=== PATIENT | male | born 1945 | race Caucasian/White ===

== ENCOUNTER → 2016-11-06 | Outpatient (CLI) | payer OTHER ==
[~2016-11-06] MED LIST: LEVO25TA PO; LISI-725 PO; METO1TAB69 PO; OXYC1TAB3 PO; PRAV10TA39 PO
== END | disposition home or self-care (01) ==
LOC: C.LAB 09:23
PROVIDERS: ATTEND Urology
DX: N40.1 Benign prostatic hyperplasia with lower urinary tract symptoms (principal)

== ENCOUNTER → 2016-11-12 | Outpatient (CLI) | payer OTHER ==
[~2016-11-12] MED LIST changes: +METO100T44 PO; -METO1TAB69 PO
--- NOTE | 2016-11-12 15:39 | DIAGNOSTIC IMAGING REPORT ---
KUB CLINICAL HISTORY: Nephrolithiasis. Benign prosthetic hypertrophy with urinary obstruction. COMPARISON STUDY: KUB June 30, 2016. FINDINGS: There is a suspected 6 mm right renal calculus. This is unchanged. Pelvic calcifications likely reflect phleboliths. No ureteral calculi are identified. Bowel gas pattern is normal. IMPRESSION: 1. No change in the 6 mm right renal calculus. 2. No ureteral calculi identified. Electronically signed by: Yan Shafer M.D. 11/12/2016 3:38 PM Dictated Date/Time: 11/12/2016 3:36 PM
== END | disposition home or self-care (01) ==
LOC: C.RAD 14:11
PROVIDERS: ATTEND Urology
DX: N40.1 Benign prostatic hyperplasia with lower urinary tract symptoms (principal); N20.0 Calculus of kidney

== ENCOUNTER → 2016-11-12 | Outpatient (CLI) | payer OTHER | END | disposition home or self-care (01) | LOC: C.LABSPEC 11:16 | PROVIDERS: ATTEND Urology | DX: N20.0 Calculus of kidney (principal) ==

== ENCOUNTER 2016-12-08 15:19 | Emergency (ER) | payer OTHER ==
[~2016-12-08] VITALS: Ht 175.3 cm; Wt 81.1 kg
[~2016-12-08 15:19] MED LIST changes: -LEVO25TA PO; -PRAV10TA39 PO
[2016-12-08 15:27] VITALS: TEMP 36.7; Ht 175.3 cm; Wt 81.1 kg
--- NOTE | 2016-12-08 15:54 | EMERGENCY ROOM VISIT NOTE ---
ED Visit Note First contact with patient: 15:31 CHIEF COMPLAINT: Tick bite HISTORY OF PRESENT ILLNESS: This 71-year-old male patient presents to the emergency department ambulatory after they noticed a tick embedded in the scrotum yesterday. The patient did try to remove it. He states that he broke and they could not remove it all. It had been on for at least one day. The patient was in the [place] recently. The patient's tetanus shot is up-to-date. The patient denies any rashes, fevers, chills, or lightheadedness. The patient denies joint tenderness. REVIEW OF SYSTEMS: A 6 system review of systems was completed with positives and pertinent negatives listed in the HPI. ALLERGIES: Penicillin MEDICATIONS: See nursing notes PMH: Hypertension, hypothyroidism SOCIAL HISTORY: The patient lives locally with his spouse PHYSICAL EXAM: Vital Signs: Reviewed Nurse's notes, vital signs stable. GENERAL : This is a 71-year-old male, in no acute distress, well-developed, well- nourished. SKIN: There is a tick embedded in the patient's scrotum. There is a small zone of inflammation and ecchymosis around the spot where the tick is. The skin is otherwise clear. NEUROLOGICAL: Alert and oriented to person place and time, cooperative. Sensory and motor functions grossly intact. ED COURSE: I examined the patient. The tick was removed using forceps and an 18-gauge needle. There was minimal bleeding. The patient tolerated the procedure well. The area was dressed with bacitracin and a bandage. The patient was given doxycycline 200 mg p.o. for prophylaxis. The patient was discharged home in good condition. The patient was also seen and examined by who agrees with the assessment and treatment plan. DIAGNOSIS: Tick bite and removal DISCHARGE INSTRUCTIONS & TREATMENT: Watch the area for signs of infection. Keep bacitracin on it for 2 days. Follow up with family doctor if he develops symptoms of a target rash, fever, chills, lightheadedness, or joint pain. Problem List Medical Problems: (1) Corneal abrasion, right Status: Resolved (2) Kidney stones Status: Resolved Current/Historical Medications Scheduled Levothyroxine Sodium (Synthroid), 25 MCG PO DAILY Lisinopril (Zestril), 20 MG PO DAILY Metoprolol Succ (Toprol Xl) (Toprol-Xl ), 50 MG PO BID Pravastatin Sodium (Pravastatin Sodium), 1 TAB PO HS Allergies Coded Allergies: Penicillins (Unverified Allergy, Unknown, UKN, 06/30/16) Vital Signs Date Time Temp Pulse Resp B/P Pulse Ox O2 Delivery O2 Flow Rate FiO2 12/08/16 16:17 90 123/97 98 12/08/16 15:27 36.7 72 16 153/87 97 Room Air Medications Administered Medications (Trade) Dose Ordered Sig/Franca Route Start Time Stop Time Status Last Admin Dose Admin Doxycycline Hyclate (Vibramycin Cap) 200 mg ONE ONCE PO 12/08/16 16:00 12/08/16 16:01 DC 12/08/16 16:12 200 MG Departure Information Impression Primary Impression: Tick bite Dispostion Home / Self-Care Condition GOOD Referrals Stanislav Solitario M.D. (PCP) Patient Instructions ED Bite Tick Abx Tx, My [employer] Additional Instructions Watch the area for signs of infection. Keep bacitracin on it for 2 days. Follow up with family doctor if he develops symptoms of a target rash, fever, chills, lightheadedness, or joint pain. Problem Qualifiers Primary Impression: Tick bite Encounter type: initial encounter Qualified Codes: W57.XXXA - Bitten or stung by nonvenomous insect and other nonvenomous arthropods, initial encounter
[2016-12-08] MEDS ORDERED: DOXYCYCLINE HYCLATE 100 MG CAP PO ONE (16:00)
[2016-12-08] MEDS ORDERED: LEVO25TA PO (16:02)
[2016-12-08] MEDS ORDERED: PRAV10TA39 PO (16:02)
[2016-12-08 16:17] VITALS: BP 123/97; PULSE 90; O2SAT 98
== END 2016-12-08 16:18 | disposition home or self-care (01) ==
LOC: C.EDB 15:20 → C.EDD 16:18
DX: S30.863A Insect bite (nonvenomous) of scrotum and testes, initial encounter (principal); W57.XXXA Bitten or stung by nonvenomous insect and other nonvenomous arthropods, initial encounter; E05.90 Thyrotoxicosis, unspecified without thyrotoxic crisis or storm; E03.9 Hypothyroidism, unspecified; Z79.899 Other long term (current) drug therapy; Z88.0 Allergy status to penicillin; Z87.442 Personal history of urinary calculi

== ENCOUNTER 2018-09-07 22:46 | Observation (INO) ==
[2018-09-07] MEDS ORDERED: diazePAM INJ 5 MG/ML 2 ML CARP IV STA (23:14)
[2018-09-07 23:22] LABS: Basophils # (auto) 0.04 K/uL (0-0.2); Basophils % (auto) 0.4 %; Eosinophils # (auto) 0.12 K/uL (0-0.5); Eosinophils % (auto) 1.1 %; Hematocrit (blood only) 46.6 % (42-52); Hemoglobin 16.4 g/dL (14.0-18.0); Immature Granulocytes # (auto) 0.03 K/uL (0.00-0.02); Immature Granulocytes % (auto) 0.3 %; Lymphocytes # (auto) 4.34 K/uL (1.2-3.4); Lymphocytes % (auto) 40.4 %; Mean Corpuscular Hgb Conc 35.2 g/dL (32-36); Mean Corpuscular Volume 90.1 fL (80-100); Mean Platelet Volume 9.6 fL (7.4-10.4); Monocytes # (auto) 0.93 K/uL (0.11-0.59); Monocytes % (auto) 8.7 %; Neutrophils # (auto) 5.27 K/uL (1.4-6.5); Neutrophils % (auto) 49.1 %; Platelet Count 210 K/uL (130-400); RDW Coefficient of Variation 12.5 % (11.5-14.5); RDW Standard Deviation 41.3 fL (36.4-46.3); Red Blood Count 5.17 M/uL (4.7-6.1); White Blood Count 10.73 K/uL (4.8-10.8)
[2018-09-07] MEDS ORDERED: DIAZEPAM 5 MG/ML INJ 10ML VIAL ONE (23:23)
[2018-09-07 23:32] LABS: iSTAT Hemoglobin 15.6 g/dl (14.0-18.0); iSTAT Ionized Calcium 1.14 mmol/l (1.12-1.32)
[2018-09-07 23:39] LABS: BUN Creatinine Ratio 16.4 (10-20); Blood Urea Nitrogen 23 mg/dl (7-18); Carbon Dioxide 26 mmol/L (21-32); Chloride 106 mmol/L (98-107); Creatinine Clr Calc Pharmacy 46.5 ml/min; Est GFR (African American) 57.7; Est GFR (Non-African American) 49.8; Glucose 145 mg/dl (70-99); Magnesium 2.3 mg/dl (1.8-2.4); Potassium 3.3 mmol/L (3.5-5.1); Sodium 142 mmol/L (136-145)
[2018-09-07 23:43] LABS: Troponin I < 0.015 ng/ml (0-0.045)
[2018-09-07] MEDS ORDERED: OPTIRAY 320 125ml IV PRN (23:51)
--- NOTE | 2018-09-08 03:46 | History & Physical Report ---
Date of Service September 08, 2018 Assessment & Plan (1) Vertigo: 73 y/o M hx HTN, HLD, hypothyroidism. The pt presented primarily with severe vertigo, nausea and vomiting. He states that he felt like he could not hear out of his L ear for few days. He then picked up his phone today and when he abram to a full standing position with his head up, he became exceedingly dizzy. This persisted and was accompanied by profuse diaphoresis. He had to keep his eyes shut on route to the hospital and then vomited a few times on arrival. It was reported that he had clearly visible R gaze nystagmus on initial evaluation. He appeared to respond well to benzodiazepines and his symptoms had all but resolved at the time of medical evaluation. He describes sinus congestion leading up to his symptoms and denies a headache, fevers or unilateral weakness. The pt also describes some numbness in his R hand, however , this appears to be positional and is more consistent with carpal tunnel syndrome than a central issue. 1) Acute vertigo, nausea, vomiting, diaphoresis. Symptoms initially described as severe, although they resolved with Lorazipam. He is admitted with a TIA protocol and scheduled for an AM MRI. He will continue his his statin and we will provide ASA as well. Considering his history of congestion and L ear hearing loss, this is likely more related to positional vertigo, although the diaphoresis is not as easy to explain. we will obtain an additional trop AM. Regarding his R hand numbness, it is described as distal numbness which resolves with positional change. I believe this is carpal tunnel syndrome and can be addressed in the outpt setting. 2) HTN- he may be taking Metoprolol more for an elevated HR and prior tachyarrhythmias rather than HTN. We will continue this as prescribed therefore. 3) HLD - cont Simvastatin. 4) Hypothyroidism - cont Synthroid Full code - Heparin prophylaxis Total time for this admit including review of labs, meds, imaging, records - discussion with pt, family and ER attending - 40 min History of Present Illness Primary Care Provider: Stanislav Solitario 73 y/o M hx HTN, HLD, hypothyroidism. The pt presented primarily with severe vertigo, nausea and vomiting. He states that he felt like he could not hear out of his L ear for few days. He then picked up his phone today and when he abram to a full standing position with his head up, he became exceedingly dizzy. This persisted and was accompanied by profuse diaphoresis. He had to keep his eyes shut on route to the hospital and then vomited a few times on arrival. It was reported that he had clearly visible R gaze nystagmus on initial evaluation. He appeared to respond well to benzodiazepines and his symptoms had all but resolved at the time of medical evaluation. He describes sinus congestion leading up to his symptoms and denies a headache, fevers or unilateral weakness. The pt also describes some numbness in his R hand, however , this appears to be positional and is more consistent with carpal tunnel syndrome than a central issue. PMH: 1) HTN 2) HLD 3) Hypothyroidism 4) Histroy of GI bleeding - no definitive source Surgical: 1) Tayo fundoplication 2) Umbilical hernia repair Family: No history of CVA - father had a brain tumor Social: Does not smoke or drink. 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 Allergies Allergy/AdvReac Type Severity Reaction Status Date / Time strawberry Allergy Intermediate Hives Verified 09/07/18 23:55 tomato Allergy Intermediate Hives Verified 09/07/18 23:55 Penicillins Allergy Unknown UKN Unverified 09/07/18 23:53 Home Medications Home Medications Medication Instructions Recorded Confirmed Type levothyroxine 25 mcg PO DAILY 09/07/18 09/07/18 History metoprolol succinate 50 mg PO DAILY 09/07/18 09/07/18 History pravastatin 20 mg PO DAILY 09/07/18 09/07/18 History Past Med/Surg History Social History Feels Safe at Home: Yes Smoking Status: Never smoker Review of Systems Gen: Describes profuse diaphoresis ENT: Nasal congestion and transient L sided hearing loss Eyes: Describes inability to focus/vertigo CV: Denies CP, palpitations Pulmonary: Denies SOB, cough, wheezing GI: Denies diarrhea, constipation - N/V on arrival to hospital as above Neuro: Denies acute or unilateral weakness, acute gait impairment - vertigo as above Musculoskeletal: Denies joint pain, inflammation Endocrine: Denies polydipsia, polyuria Skin: Denies acute rashes or ulcers Physical Exam 2 Vital Signs (Past 24 Hours): Last Vital Signs Temp 36.4 C L 09/07/18 22:49 Pulse 90 09/08/18 02:32 Resp 14 09/08/18 02:32 BP 129/90 09/08/18 02:32 Pulse Ox 93 09/08/18 02:32 Physical Exam: General: AAO x 3, no distress ENT: No erythema or exudates, no thrush - L ear exhibits mild wax build up Eyes: [place], EOMI Head and neck: Normocephalic, atraumatic, No JVD, neck is supple. Chest/heart: Nontender, S1,2, RRR, no murmurs, no gallops Lungs: CTAB, no wheezing or crackles Abdomen: Nontender, nondistended, BS+ Neuro: AAO x 3, speech is clear, no unilateral weakness or loss of sensation, coordination intact Musculoskeletal: No joint inflammation, muscle tenderness, FROM Skin: No acute rashes or ulcers Extremities: No clubbing, cyanosis, edema Results & Data Diagnostic Findings CTA head: BL basal ganglia calcifications consistent with thyroid disease. No evidence of acute infarct.
[2018-09-08] MEDS ORDERED: LORazepam 0.25 MG/0.5 ML VIAL IV PRN (04:15)
[2018-09-08] MEDS ORDERED: MAGNESIUM HYDROXIDE SUSP 30 ML UDC PO PRN (04:15)
[2018-09-08] MEDS ORDERED: ALUMINUM/MAGNESIUM SUSP 30 ML UDC PO PRN (04:15)
[2018-09-08] MEDS ORDERED: ONDANSETRON INJ 2 MG/ML 2 ML VIAL IV PRN (04:15)
[2018-09-08] MEDS ORDERED: PHARMACIST DISCHARGE MED REC CONSULT PRN (04:15)
[2018-09-08] MEDS ORDERED: ACETAMINOPHEN 325 MG TAB PO PRN (04:15)
[2018-09-08] MEDS ORDERED: POLYETHYLENE (MIRALAX) 17 GM PACK PO PRN (04:15)
[2018-09-08] MEDS ORDERED: LORazepam 0.5 MG/1 ML VIAL IV PRN (04:44)
[2018-09-08] MEDS: D5NSS + 20MEQ KCL 20 MEQ/1,000 ML BAG IV SCH ×2 (05:02→14:02)
--- NOTE | 2018-09-08 05:56 | Emergency Department Note ---
Entered by Kalen Mercado acting as a scribe for Lawson Munroe MD ED Provider Note Name: Kalen Sales Age: 73 Arrives Via: Private vehicle Informant: Patient CC: Dizziness HPI: The patient is a 73 year old male who presents to the ED with his via private vehicle due to complaints of constant dizziness that began an hour ago. Patient describes the dizziness as like the world is spinning. He states he is also warm and diaphoretic. Patient states he also began vomiting after arriving at the ER. He adds that a couple of days ago he was experiencing numbness in his right hand and over the past week, including today, he has had left ear pain and difficulty hearing out of his left ear. Patient�s past medical history includes kidney stones, HTN, and HLD. states she was sick last week with the stomach bug. Patient denies any recent weakness/numbness in his legs or left arm. He also denies chest pain, abdominal pain, SOB, recent falls, exposure to weird chemicals, or history of vertigo/heart attacks/strokes/ diabetes. ROS: See above HPI for pertinent positives & negatives. A total of 10 systems reviewed and were otherwise negative. Past Medical History: Kidney stones, HTN, and HLD Past Surgical History: None Family History: None Social History: Lives with family Home Medications: HTN/HLD medication Allergies None Physical: Vitals: BP = 152/95 P = 82 Resp = 12 Temp = 97.5 O2 Sat = 97 Delivery = Room Air Exam: GENERAL: Patient is uncomfortable appearing and in moderate distress. EYES: Rotary nystagmus with slow beats to left otherwise no scleral icterus. ENT: Mild effusion of Left TM, non-bulging, nonexudative. Normal right TM. Mucous membranes moist, no nasal congestion. NECK: No masses appreciated, no meningismus, trachea is midline. RESPIRATORY: No dyspnea. Clear to auscultation and equal bilaterally. No wheeze , no rhonchi. CARDIOVASCULAR: Regular rate and rhythm. No murmurs, rubs, gallops appreciated. GASTROINTESTINAL: Abdomen soft, non-tender, no peritonitis. Bowel sounds positive. No masses appreciated. BACK: No midline tenderness, no CVA tenderness EXTREMITIES: Normal motion all extremities, no cyanosis, no edema. NEUROLOGIC: Alert and oriented, no acute motor or sensory deficits, no focal weakness, cranial nerves grossly intact. SKIN: Diaphorectic otherwise no rash, no jaundice. ED Course: Prior Medical Record, Triage/Nursing Notes, Medications, Allergies reviewed by Me Vital Signs: reviewed and remarkable for mild HTN Labs: Reviewed and remarkable for normal trop, cbc, bmp Interventions: Valium 5mg IV, NSS bolus 1L IV Imaging: X ray results are stated below per my interpretation: Chest: 1 view: No infiltrate, no effusion, normal cardiac border. [facility] Radiologist interpretation reviewed by me: "CT HEAD: Dystrophic calcifications are noted in the bilateral cerebellar vermis and also in the bilateral basal ganglia. Recommend clinical correlation with underlying metabolic disorders such as hypothyroidism. No acute intracranial hemorrhage, midline shift, mass effect, hydrocephalus or infarct. Bony structures are intact. CTA HEAD: No stenosis/occlusion or aneurysm of the intracranial vessels. Radiologist: Hugo Whitten MD" "CTA NECK: Mild atherosclerosis of the right distal common carotid artery and carotid bifurcation. No evidence of significant stenosis/occlusion or dissection of the carotid arteries or vertebral arteries. Radiologist: Hugo Whitten MD" EKG: Per My Interpretation: NSR 84 bpm with PAC no ischemia. No stemi. QTC 493. Consults: 0020: I reviewed the patient's case with Dr. Lovell of the [facility] [place]. He will evaluate the patient for further management. Times: 230: Past medical records reviewed. The patient was evaluated in room B6 , and a complete history and physical examination were performed. 0013: I reevaluated the patient who is sleeping. Patient states her nausea has improved. Patient is mildly hypoxic on room air and still has mild nystagmus but it is much improved. 0030: Upon reevaluation, the patient will be further evaluated. I updated the patient on her findings and treatment plan. Patient is agreeable to the treatment plan. Patient will be assessed for further evaluation. Blood pressure: Normal. No Referral necessary Disposition: Hospitalist Evaluation Prescriptions: None. Differentials: Headache, Migraine, Cluster Headache, Seizure, Meningitis, Sinusitis, CO exposure, ICH/SAH, Infectious, Tumor, Sinus Thrombosis, Arterial Dissection, amongst other pathologies entertained. Medical Decision Makin yr old male with HTN, DLP, hypothyroid history arrives with severe nausea, vomiting, and vertigo. Onset about an hour ago but has been having ongoing right arm issues for last few days. Rotary nystagmus with left lateral beats on eye exam though no other neuro deficits. Not TPA candidate but felt emergent CTA indicated. No bleed nor occlusion though there are large calcifications bilateral cerebellum of uncertain effect. EKG/Trop OK and without chest pain nor SOB seems unlikely ACS nor PE. He has bening abdominal exam. Mild hypoxia after IV Valium which did help symptoms though still vertiginous. With continued symptoms and already a bit hypoxic I feel discharge would not be reasonable, plus fact he will need further work-up and evaluation. Patient otherwise stable and is looking much better at time of hospitalization. Impression: Right arm weakness Vertigo Lawson Munroe MD The scribe's documentation has been prepared under my direction and personally reviewed by me in its entirety. I confirm that the note above accurately reflects all work, treatment, procedures, and medical decision making performed by me. Impression & Plan Right arm weakness, Vertigo Past Med/Surg History Medical History Hypertension Hypothyroidism Surgical History History of Juan fundoplication History of appendectomy Social History Current Living Situation: Spouse Other Information That Helps Us Care for You: No Feels Safe at Home: Yes Safety Concerns: Feels Safe At This Time Smoking Status: Never smoker Tobacco Type: smokeless tobacco Do You Dip or Chew Tobacco: Yes Second Hand Exposure: No Tobacco Cessation Education Requested by Patient: No Hx Alcohol Use: Yes Alcohol Intake Frequency: holidays/special occasions only Hx Substance Use: No Beliefs That Will Affect Care: None Preferred Language: Norwegian Communication Ability: Effective Packing Clerk Required: No Results & Data Vital Signs Vital Signs - 24 hr 09/07/18 22:49 09/07/18 23:09 09/07/18 23:49 Temperature 36.4 C L Temperature Source Oral Sepsis Recent Fever Within 48 Hours No Sepsis New/Unexplained Change in Mental Status No Sepsis Action Taken by Nursing No Action Required Pulse Rate 88 82 Pulse Rate [Apical] 88 Pulse Rhythm [Apical] Pulse Strength [Apical] Respiratory Rate 18 12 12 Respiratory Effort / Characteristics Non-Labored Spontaneous Respiratory Depth Normal Respiratory Pattern Blood Pressure 152/95 H Blood Pressure [Left Arm] 120/84 Blood Pressure [Right Arm] Blood Pressure Mean 114 Blood Pressure Mean [Left Arm] 96 Blood Pressure Mean [Right Arm] Blood Pressure Position [Left Arm] Lying Blood Pressure Position [Right Arm] Pulse Oximetry 97 97 93 Oxygen Delivery Method Room Air Room Air Room Air Oxygen Flow Rate 09/07/18 23:57 09/08/18 00:35 09/08/18 01:00 Temperature Temperature Source Sepsis Recent Fever Within 48 Hours Sepsis New/Unexplained Change in Mental Status Sepsis Action Taken by Nursing Pulse Rate Pulse Rate [Apical] 83 85 Pulse Rhythm [Apical] Pulse Strength [Apical] Respiratory Rate 13 14 Respiratory Effort / Characteristics Respiratory Depth Respiratory Pattern Blood Pressure Blood Pressure [Left Arm] 120/77 121/81 Blood Pressure [Right Arm] Blood Pressure Mean Blood Pressure Mean [Left Arm] 91 94 Blood Pressure Mean [Right Arm] Blood Pressure Position [Left Arm] Lying Lying Blood Pressure Position [Right Arm] Pulse Oximetry 87 L 95 100 Oxygen Delivery Method Room Air Room Air Nasal Cannula Oxygen Flow Rate 2 09/08/18 02:00 09/08/18 02:32 09/08/18 03:51 Temperature Temperature Source Sepsis Recent Fever Within 48 Hours Sepsis New/Unexplained Change in Mental Status Sepsis Action Taken by Nursing Pulse Rate 103 H Pulse Rate [Apical] 83 90 Pulse Rhythm [Apical] Pulse Strength [Apical] Respiratory Rate 14 14 16 Respiratory Effort / Characteristics Non-Labored Spontaneous Respiratory Depth Normal Respiratory Pattern Blood Pressure 113/95 Blood Pressure [Left Arm] 132/75 129/90 Blood Pressure [Right Arm] Blood Pressure Mean Blood Pressure Mean [Left Arm] 94 103 Blood Pressure Mean [Right Arm] Blood Pressure Position [Left Arm] Lying Lying Blood Pressure Position [Right Arm] Pulse Oximetry 100 93 94 Oxygen Delivery Method Room Air Room Air Room Air Oxygen Flow Rate 09/08/18 04:10 09/08/18 04:15 Temperature 36.6 C Temperature Source Oral Sepsis Recent Fever Within 48 Hours Sepsis New/Unexplained Change in Mental Status Sepsis Action Taken by Nursing Pulse Rate 106 H Pulse Rate [Apical] 101 H Pulse Rhythm [Apical] Regular Pulse Strength [Apical] Normal Respiratory Rate 18 Respiratory Effort / Characteristics Non-Labored Spontaneous Respiratory Depth Normal Respiratory Pattern Regular Blood Pressure Blood Pressure [Left Arm] Blood Pressure [Right Arm] 137/84 Blood Pressure Mean Blood Pressure Mean [Left Arm] Blood Pressure Mean [Right Arm] 101 Blood Pressure Position [Left Arm] Blood Pressure Position [Right Arm] Sitting Pulse Oximetry 97 Oxygen Delivery Method Room Air Oxygen Flow Rate Laboratory Data Result diagrams: 09/07/18 23:02 09/07/18 23:02 Lab Results 09/07/18 09/07/18 09/07/18 Range/Units 23:02 23:02 23:02 WBC 10.73 (4.8-10.8) K/uL RBC 5.17 (4.7-6.1) M/uL Hgb 16.4 (14.0-18.0) g/dL POC Hgb (14.0-18.0) g/dl Hct 46.6 (42-52) % POC Hct (42-52) % MCV 90.1 (80-100) fL MCH 31.7 (25-34) pg MCHC 35.2 (32-36) g/dL RDW Std Deviation 41.3 (36.4-46.3) fL RDW Coeff of Aaron 12.5 (11.5-14.5) % Plt Count 210 (130-400) K/uL MPV 9.6 (7.4-10.4) fL Immature Gran % (Auto) 0.3 % Neut % (Auto) 49.1 % Lymph % (Auto) 40.4 % [place] % (Auto) 8.7 % Eos % (Auto) 1.1 % Baso % (Auto) 0.4 % Immature Gran # (Auto) 0.03 H (0.00-0.02) K/uL Neut # (Auto) 5.27 (1.4-6.5) K/uL Lymph # (Auto) 4.34 H (1.2-3.4) K/uL [place] # (Auto) 0.93 H (0.11-0.59) K/uL Eos # (Auto) 0.12 (0-0.5) K/uL Baso # (Auto) 0.04 (0-0.2) K/uL PT 10.0 (9.0-12.0) Seconds INR 1.0 (0.9-1.1) POC Sodium (135-144) mEq/L Sodium 142 (136-145) mmol/L POC Potassium (3.3-5.0) mEq/L Potassium 3.3 L (3.5-5.1) mmol/L POC Chloride (101-112) mEq/L Chloride 106 (98-107) mmol/L Carbon Dioxide 26 (21-32) mmol/L POC Total CO2 (24-31) mEq/l Anion Gap 10.0 (3-11) POC Anion Gap (16-25) mmol/L POC BUN (7-18) mg/dl BUN 23 H (7-18) mg/dl Creatinine 1.41 H (0.6-1.4) mg/dl POC Creatinine (0.6-1.3) mg/dl Est Cr Clr Drug Dosing 46.5 ml/min Est GFR ( Amer) 57.7 Est GFR (Non-Af Amer) 49.8 BUN/Creatinine Ratio 16.4 (10-20) Glucose 145 H (70-99) mg/dl POC Glucose (other) (70-99) mg/dl Calcium 9.0 (8.5-10.1) mg/dl POC Ioniz Calcium Martin (1.12-1.32) mmol/l Magnesium 2.3 (1.8-2.4) mg/dl Troponin I < 0.015 (0-0.045) ng/ml 09/07/18 Range/Units 23:17 WBC (4.8-10.8) K/uL RBC (4.7-6.1) M/uL Hgb (14.0-18.0) g/dL POC Hgb 15.6 (14.0-18.0) g/dl Hct (42-52) % POC Hct 46 (42-52) % MCV (80-100) fL MCH (25-34) pg MCHC (32-36) g/dL RDW Std Deviation (36.4-46.3) fL RDW Coeff of Aaron (11.5-14.5) % Plt Count (130-400) K/uL MPV (7.4-10.4) fL Immature Gran % (Auto) % Neut % (Auto) % Lymph % (Auto) % [place] % (Auto) % Eos % (Auto) % Baso % (Auto) % Immature Gran # (Auto) (0.00-0.02) K/uL Neut # (Auto) (1.4-6.5) K/uL Lymph # (Auto) (1.2-3.4) K/uL [place] # (Auto) (0.11-0.59) K/uL Eos # (Auto) (0-0.5) K/uL Baso # (Auto) (0-0.2) K/uL PT (9.0-12.0) Seconds INR (0.9-1.1) POC Sodium 142 (135-144) mEq/L Sodium (136-145) mmol/L POC Potassium 3.3 (3.3-5.0) mEq/L Potassium (3.5-5.1) mmol/L POC Chloride 104 (101-112) mEq/L Chloride (98-107) mmol/L Carbon Dioxide (21-32) mmol/L POC Total CO2 24 (24-31) mEq/l Anion Gap (3-11) POC Anion Gap 18.0 (16-25) mmol/L POC BUN 23 H (7-18) mg/dl BUN (7-18) mg/dl Creatinine (0.6-1.4) mg/dl POC Creatinine 1.3 (0.6-1.3) mg/dl Est Cr Clr Drug Dosing ml/min Est GFR ( Amer) Est GFR (Non-Af Amer) BUN/Creatinine Ratio (10-20) Glucose (70-99) mg/dl POC Glucose (other) 147 H (70-99) mg/dl Calcium (8.5-10.1) mg/dl POC Ioniz Calcium Martin 1.14 (1.12-1.32) mmol/l Magnesium (1.8-2.4) mg/dl Troponin I (0-0.045) ng/ml Administered Medications Potassium Chloride/Dextrose/Sod Cl (D5nss + 20meq Kcl) 20 meq in 1,000 mls @ 150 mls/hr IV .[id number] [facility] Stop: 10/08/18 04:14 Last Admin: 09/08/18 05:02 Dose: 150 mls/hr Ioversol (Optiray 320 125ml) 125 ml IV ONCE PRN PRN Reason: Interaction Checking Stop: 09/11/18 23:50 Last Admin: 09/07/18 23:51 Dose: 119 ml Discontinued Medications Diazepam (Valium) 5 mg IV NOW STA Stop: 09/07/18 23:15 Last Admin: 09/07/18 23:48 Dose: Not Given Diazepam (Valium) Confirm Administered Dose 5 mg .ROUTE .STK-MED ONE Stop: 09/07/18 23:24 Last Admin: 09/07/18 23:47 Dose: 5 mg Discharge Plan Visit Data *Final* Discharge Date/Time: 09/08/18 03:51 Chief Complaint: Vertigo Stated Complaint: DIZZY ED Provider: Lawson Munroe Discharge Problem: Right arm weakness, Vertigo Patient Disposition: Admitted As Inpatient Discharge Instructions Interventions: ED Discharge Assessment Last Done: 09/08/18 03:51 The scribe's documentation has been prepared under my direction and personally reviewed by me in its entirety. I confirm that the note above accurately reflects all work, treatment, procedures, and medical decision making performed by me.
[2018-09-08] MEDS: LEVOTHYROXINE SODIUM 25 MCG TABLET PO SCH (06:10)
[2018-09-08] MEDS: HEPARIN SOD 5,000 UNIT/0.5 ML VIAL SQ SCH ×3 (06:10→20:25)
[2018-09-08 06:37] LABS: Basophils # (auto) 0.01 K/uL (0-0.2); Basophils % (auto) 0.1 %; Eosinophils # (auto) 0.02 K/uL (0-0.5); Eosinophils % (auto) 0.2 %; Hematocrit (blood only) 42.7 % (42-52); Hemoglobin 14.8 g/dL (14.0-18.0); Immature Granulocytes # (auto) 0.03 K/uL (0.00-0.02); Immature Granulocytes % (auto) 0.3 %; Lymphocytes # (auto) 1.35 K/uL (1.2-3.4); Lymphocytes % (auto) 11.3 %; Mean Corpuscular Hgb Conc 34.7 g/dL (32-36); Mean Corpuscular Volume 90.7 fL (80-100); Mean Platelet Volume 9.3 fL (7.4-10.4); Monocytes # (auto) 0.69 K/uL (0.11-0.59); Monocytes % (auto) 5.8 %; Neutrophils % (auto) 82.3 %; Platelet Count 173 K/uL (130-400); RDW Coefficient of Variation 12.5 % (11.5-14.5); RDW Standard Deviation 41.6 fL (36.4-46.3); Red Blood Count 4.71 M/uL (4.7-6.1)
--- NOTE | 2018-09-08 06:42 | CT Scan Report ---
CT angio head wo/w CT DOSE: CLINICAL HISTORY: Vertigo, right arm weakness possible stroke TECHNIQUE: Unenhanced images were obtained through the brain. CT angiography was then performed in a dynamic helical fashion during intravenous administration 1 19 cc of Optiray 320. MIP imaging was acq uired. A dose lowering technique was utilized adhering to the principles of ALARA. COMPARISON STUDY: None. FINDINGS: Noncontrast studies reveal no intra or extra-axial mass lesions. There is no CT evidence of acute cortical infarction. There is no midline shift. No calvarial fractures are visualized. There a re dense cerebellar calcifications. There are mild basal ganglia calcifications. There is no evidence of acute sinusitis. Postcontrast images reveal no pathologically enhancing masses. The dural venous sinuses appear patent . There is no evidence of major intracranial branch occlusion. There are no lesion suspicious for aneur ysm. IMPRESSION: 1. Dentate nucleus and basal ganglia calcification 2. No evidence of aneurysm. No evidence of major intracranial branch occlusion. Electronically signed by: Burke Arriaga M.D. 09/08/2018 6:40 AM
--- NOTE | 2018-09-08 06:56 | CT Scan Report ---
CT angio neck with con HISTORY: Mental status change sudden onset vertigo, left ear discomfort TECHNIQUE: Multiaxial CT angiography of the neck was performed IV contrast: 100 cc All measure ments were calculated based on NASCET criteria. Maximum intensity projection images were also obtain ed. A dose lowering technique was utilized adhering to the principles of ALARA. COMPARISON STUDY: None. FINDINGS: The aortic arch and proximal great vessels are widely patent. There is no significant sten osis, occlusion, or dissection identified within the bilateral common carotid, internal carotid, or v ertebral arteries. Moderate plaque formation right carotid bifurcation. No evidence for dissection. T he vertebral basilar system is unremarkable IMPRESSION: No significant stenosis, occlusion, or dissection identified within the carotid or vertebral arteries . Moderate plaque formation right carotid bifurcation. The above report was generated using voice recognition software. It may contain grammatical, syntax or spelling errors. Electronically signed by: Donn Tim M.D. 09/08/2018 6:55 AM
[2018-09-08 07:10] LABS: BUN Creatinine Ratio 16.5 (10-20); Calcium 8.4 mg/dl (8.5-10.1); Est GFR (African American) 69.4; Est GFR (Non-African American) 59.9; Potassium 4.4 mmol/L (3.5-5.1)
[2018-09-08 08:10] LABS: Estimated Average Glucose 117 mg/dl
[2018-09-08 08:50] LABS: BUN Creatinine Ratio 16.1 (10-20); Blood Urea Nitrogen 19 mg/dl (7-18); Calcium 8.7 mg/dl (8.5-10.1); Carbon Dioxide 28 mmol/L (21-32); Chloride 106 mmol/L (98-107); Creatinine Clr Calc Pharmacy 56.5 ml/min; Est GFR (African American) 70.1; Est GFR (Non-African American) 60.5; Glucose 153 mg/dl (70-99); Sodium 139 mmol/L (136-145)
[2018-09-08 08:55] LABS: Troponin I < 0.015 ng/ml (0-0.045)
[2018-09-08] MEDS: METOPROLOL SUCC 50MG EXT REL TAB PO SCH (09:02)
[2018-09-08] MEDS: ASPIRIN 81 MG ECTAB PO SCH (09:02)
[2018-09-08] MEDS: PRAVASTATIN SOD 20 MG TAB PO SCH (09:02)
--- NOTE | 2018-09-08 09:51 | XRay Report ---
ORBIT RADIOGRAPHS 3 VIEWS HISTORY: pre-MRI screening. COMPARISON: None. FINDINGS: There are no radiopaque foreign bodies identified within the orbits. IMPRESSION: No radiopaque foreign bodies identified within the orbits. Electronically signed by: Burke Arriaga M.D. 09/08/2018 9:50 AM
--- NOTE | 2018-09-08 10:42 | Magnetic Resonance Report ---
MR brain wo con HISTORY: Mental status change CVA TECHNIQUE: Multiplanar multisequence MRI of the brain was performed without the use of contrast. COMPARISON STUDY: None. FINDINGS: There are no areas of restricted diffusion to suggest acute infarction. The midline structu res are intact. The paranasal sinuses are clear. The mastoid air cells are clear. The ventricles and sulci are within normal limits for age. There is no mass, hematoma, midline shift. The major vascular flow-voids at the skull base are well maintained. Age-related atrophy and chronic small vessel saucedo e IMPRESSION: No acute intracranial abnormality. Age-related atrophy and chronic small vessel change. The above report was generated using voice recognition software. It may contain grammatical, syntax or spelling errors. Electronically signed by: Donn Tim M.D. 09/08/2018 10:41 AM
--- NOTE | 2018-09-08 11:13 | Neurology Consultation ---
Date of Consultation September 08, 2018 Assessment & Plan (1) Vertigo: Patient has acute onset vertigo referable to left inner ear. He has left ear pain and fullness with hearing loss. He likely has congestion in that ear triggering the the vertigo. He has nausea, vomiting, and balance issues with the vertigo, as well as some blurriness with looking to the left due to his significant nystagmus. All of this points the left inner ear. He has no other neurologic deficits including no focal findings, meningeal signs , or encephalopathy. MRI of the brain showed no acute stroke. (2) Right arm weakness: He has had some intermittent right hand numbness for the last week. Currently he does not have this. He describes it to me as more of a numbness than a weakness and it is intermittent. He has a negative Tinel sign over the median nerve at the wrist but I suspect carpal tunnel syndrome. Recommendations: 1. Benzodiazepine such as lorazepam or diazepam for short-term use for vertigo. Meclizine may help but with significant vertigo the benzodiazepines to better. Unfortunately it will make patient is sleepy. 2. Increase activity as able 3. Consider EMG and nerve conduction study of the right upper extremity as an outpatient. 4. Consider decongestant and/or oral antibiotic for this patient - I will defer to the hospitalist for this. 5. I have no further neurologic testing or treatment recommendations to make at this time. Please contact me if I can be of further assistance on this case. Overall, I spent a total of 90 minutes with this case including review of records, review the MRI films, direct evaluation the patient at bedside, and discussion of the case with the patient at bedside, clinical staff, and Dr. Joseph including differential diagnosis and treatment options. History of Present Illness Reason for Consultation: It is a 73-year-old, who I was asked to see at the request of Dr. Lovell, for neurologic consultation regarding acute vertigo Requesting Physician: Dr. Lovell Attending Physician: Jared Joseph History of Present Illness Patient has no history of previous vertiginous episodes. He has no history of stroke or significant head trauma. He does have a history of hypertension and hypothyroidism with dyslipidemia. He has a history of renal stones in the past. For approximately 1 week he has had issues with viral illness. He was having left ear pain and fullness in his left ear with decreased hearing for several days prior to admission. He would notice intermittent right hand numbness over the last week as well. Patient went to work feeling reasonably well at 0730, the morning of September 07. 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 He went home at 4, again feeling reasonably well. He then went to the grocery store and came back and felt the onset of vertigo. It was severe and he could not stand. Closing his eyes mid feel better. He did not feel particularly pulled in any direction. He did have ear pain and congestion on the left still. His drove him to the emergency room every time he opened his eyes looking a cars he felt more vertiginous and had nausea and vomiting. He arrived to the emergency room at 2249 with a temperature 36.4, pulse 82 and regular, respiratory rate 12, blood pressure 152/95, and O2 saturation 97 percent. He was the vertiginous and had rotary nystagmus noted. He had an effusion of his left tympanic membrane. He was oriented with normal speech and had no other issues with his limbs. CBC was unremarkable and glucose was 140. Hemoglobin A1c was 5.4 and lipid profile was unremarkable. CT angiography of the head and neck were unremarkable with no significant vascular anomalies or stenosis. MRI of the brain without contrast shows no acute stroke or other findings. His blood pressure remained elevated. His vertiginous symptomatology cleared some head overnight did well. This morning he was doing fairly well until he went to the MRI and noted vertigo with nausea and vomiting. Currently he is lying in bed with his eyes closed. He feels that opening his eyes makes his vertigo worse and is worse looking to the left. It is a whirling spinning but he can't tell me if it is clockwise work out a clockwise and he does not feel pulled in anyone direction. He still has ear pain and fullness in his left ear. He has no new weakness or numbness of the limbs and his right hand is not numb. Allergies Allergy/AdvReac Type Severity Reaction Status Date / Time strawberry Allergy Intermediate Hives Verified 09/07/18 23:55 tomato Allergy Intermediate Hives Verified 09/07/18 23:55 Penicillins Allergy Unknown N Unverified 09/07/18 23:53 Home Medications Home Medications Medication Instructions Recorded Confirmed Type levothyroxine 25 mcg PO DAILY 09/07/18 09/07/18 History metoprolol succinate 50 mg PO DAILY 09/07/18 09/07/18 History pravastatin 20 mg PO DAILY 09/07/18 09/07/18 History Patient History Medical History Hypertension Hypothyroidism Surgical History History of Juan fundoplication History of appendectomy Family History Mother , in her 60s with brain aneurysm and senile dementia of the Alzheimer's type Alzheimer disease Father , age 66 of renal cell carcinoma and brain tumor Brain tumor Social History Current Living Situation: Spouse current occupational status: retired current occupation: Works part-time at the [employer] doing [email or web address] Other Information That Helps Us Care for You: No Feels Safe at Home: Yes Safety Concerns: Feels Safe At This Time Smoking Status: Never smoker Tobacco Type: smokeless tobacco Do You Dip or Chew Tobacco: Yes Second Hand Exposure: No Tobacco Cessation Education Requested by Patient: No Hx Alcohol Use: Yes Alcohol Intake Frequency: holidays/special occasions only Hx Substance Use: No Beliefs That Will Affect Care: None Preferred Language: Cameroonian Communication Ability: Effective 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: No Review of Systems Constitutional: + fatigue; no fever and no weakness Eyes: no diplopia, no eye pain and no worsening vision Ear, Nose, Mouth, Throat: + ear pain (Left), + hearing loss (Left) and + dizziness; no dysphagia Respiratory: no cough and no dyspnea Cardiovascular: no chest pain, no dyspnea and no palpitations Gastrointestinal: + nausea and + vomiting; no abdominal pain Genitourinary (Male): no dysuria, no urinary frequency and no urinary incontinence Musculoskeletal: no back pain, no neck pain, no radicular pain, no myalgia, no muscle weakness and no muscle atrophy Integumentary: no rash and no lesions Neurologic: + dizziness; no gait abnormality, no falls, no localized weakness, no generalized weakness, no tingling, no numbness, no tremor(s), no abnormal movements, no headache(s), no abnormal speech, no behavioral changes, no confusion and no memory loss Psychiatric: no depression, no abnormal sleep pattern, no anxiety, no difficulty concentrating, no confusion and no hallucinations Endocrine: no fatigue and no flushing Hematologic / Lymphatic: no easy bleeding and no easy bruising Allergy / Immunological: no urticaria Physical Exam 2 Vital Signs (Past 24 Hours): Last Vital Signs Temp 36.7 C 09/08/18 07:01 Pulse 80 09/08/18 08:00 Resp 17 09/08/18 07:01 BP 136/98 09/08/18 07:01 Pulse Ox 99 09/08/18 07:01 Physical Exam: The patient is right-handed. The patient is awake, alert, and attentive, although sleepy for medication he is easily aroused. Speech is normal without any aphasia or dysarthria. Mentation and thought processes are intact, with full orientation and normal fund of knowledge. Attention and concentration are normal although he is sleepy for medication. Mood and affect are normal and appropriate. General appearance and grooming are normal. Short and long-term memory are intact. The discs are sharp with positive venous pulsations bilaterally. There are no exudates, hemorrhages, or blood vessel changes seen. Pupils are 4 mm bilaterally and reactive to light. Extraocular eye muscles are intact with upgaze, downgaze, and right gaze. With left gaze he has nystagmus with fast component direction of the gaze bilaterally. Visual acuity and visual rodriguez seem normal grossly to confrontation. There are no deficits to sensation in the face in all 3 distributions of the fifth cranial nerve bilaterally. Corneal reflexes are positive bilaterally. Facial strength and symmetry was normal bilaterally. Hearing seems intact grossly to voice and finger rub bilaterally. Palate moves well without asymmetry. There is normal sternocleidomastoid and trapezius (shoulder shrug) strength bilaterally. Tongue is midline with good strength bilaterally. Neck has a full range of motion without discomfort. There are no cervical bruits bilaterally. There are no cranial or ocular bruits. Heart is without murmur. There is a regular rhythm and rate. Cervical, thoracic, and lumbar spine are nontender to palpation. Gait is is not tested due to his vertigo with position change but his stance sitting up in bed is quite good. With outstretched arms there is no drift. There are no resting, postural, or action tremors. There is no ataxia with finger to nose testing. There is good facility in the hands. No other abnormal involuntary movements are noted. Motor strength is 5/5 diffusely in the arms bilaterally including deltoids, biceps, triceps, brachioradialis, wrist flexors and extensors, construction equipment mechanic, and intrinsic hand muscles. Motor strength is 5/5 diffusely in the legs bilaterally including hip flexors, quadriceps, hamstrings, gastrocnemius, tibialis anterior , tibialis posterior, and Peroneii muscles bilaterally. Toe extensors are normal and there is good bulk in the extensor digitorum brevis muscles bilaterally. The limbs have good tone without rigidity or spasticity. There is no atrophy noted in the muscles. Muscle bulk is normal, there is no tenderness to palpation , no myotonia to percussion, and no fasciculations seen. Sensory examination is intact to touch and pin throughout all 4 limbs diffusely. temperature. Reflexes are 1/4 in the biceps, triceps, brachioradialis, quadriceps, and Achilles tendons bilaterally. Toes are downgoing with plantar stimulation bilaterally. Peripheral pulses are present and of normal quality distally in all 4 limbs. There is no peripheral edema noted in the limbs. Results & Data Diagnostic Findings MR brain wo con HISTORY: Mental status change CVA TECHNIQUE: Multiplanar multisequence MRI of the brain was performed without the use of contrast. COMPARISON STUDY: None. FINDINGS: There are no areas of restricted diffusion to suggest acute infarction. The midline structures are intact. The paranasal sinuses are clear. The mastoid air cells are clear. The ventricles and sulci are within normal limits for age. There is no mass, hematoma, midline shift. The major vascular flow-voids at the skull base are well maintained. Age-related atrophy and chronic small vessel change IMPRESSION: No acute intracranial abnormality. Age-related atrophy and chronic small vessel change. The above report was generated using voice recognition software. It may contain grammatical, syntax or spelling errors. Electronically signed by: Donn Tim M.D. 09/08/2018 10:41 AM
[2018-09-08] MEDS ORDERED: PSEUDOEPHEDRINE HCL 30 MG TAB PO STA (13:58)
[2018-09-08] MEDS: FLUTICASONE PROPIONATE NA SPR 16 GM BTL SCH (20:58)
[2018-09-08] MEDS: SODIUM CHLORIDE 0.65% NA SOLN 45 ML (OCEAN) SCH (20:58)
[2018-09-09] MEDS: HEPARIN SOD 5,000 UNIT/0.5 ML VIAL SQ SCH ×3 (05:39→20:27)
[2018-09-09] MEDS: LEVOTHYROXINE SODIUM 25 MCG TABLET PO SCH (05:39)
[2018-09-09 06:16] LABS: Basophils # (auto) 0.02 K/uL (0-0.2); Basophils % (auto) 0.3 %; Eosinophils # (auto) 0.06 K/uL (0-0.5); Eosinophils % (auto) 0.8 %; Hematocrit (blood only) 42.6 % (42-52); Hemoglobin 14.5 g/dL (14.0-18.0); Immature Granulocytes # (auto) 0.02 K/uL (0.00-0.02); Immature Granulocytes % (auto) 0.3 %; Lymphocytes # (auto) 1.82 K/uL (1.2-3.4); Lymphocytes % (auto) 25.4 %; Mean Corpuscular Volume 91.2 fL (80-100); Mean Platelet Volume 9.4 fL (7.4-10.4); Monocytes # (auto) 0.65 K/uL (0.11-0.59); Monocytes % (auto) 9.1 %; Neutrophils % (auto) 64.1 %; Platelet Count 166 K/uL (130-400); RDW Coefficient of Variation 12.7 % (11.5-14.5); RDW Standard Deviation 42.3 fL (36.4-46.3); Red Blood Count 4.67 M/uL (4.7-6.1); White Blood Count 7.17 K/uL (4.8-10.8)
[2018-09-09 06:55] LABS: BUN Creatinine Ratio 14.5 (10-20); Calcium 8.5 mg/dl (8.5-10.1); Creatinine Clr Calc Pharmacy 53.3 ml/min; Est GFR (African American) 65.4; Est GFR (Non-African American) 56.5; Potassium 3.9 mmol/L (3.5-5.1)
[2018-09-09] MEDS: PRAVASTATIN SOD 20 MG TAB PO SCH (08:41)
[2018-09-09] MEDS: METOPROLOL SUCC 50MG EXT REL TAB PO SCH (08:41)
[2018-09-09] MEDS: FLUTICASONE PROPIONATE NA SPR 16 GM BTL SCH ×2 (08:42→20:28)
[2018-09-09] MEDS: ASPIRIN 81 MG ECTAB PO SCH (08:42)
[2018-09-09] MEDS: SODIUM CHLORIDE 0.65% NA SOLN 45 ML (OCEAN) SCH ×2 (08:43→20:28)
[2018-09-09] MEDS ORDERED: PSEUDOEPHEDRINE HCL 30 MG TAB PO STA (14:14)
[2018-09-09] MEDS ORDERED: MECLIZINE HCL 25 MG TAB PO STA (14:16)
[2018-09-10] MEDS: HEPARIN SOD 5,000 UNIT/0.5 ML VIAL SQ SCH (05:57)
[2018-09-10] MEDS: LEVOTHYROXINE SODIUM 25 MCG TABLET PO SCH (05:57)
[2018-09-10 07:37] LABS: Basophils # (auto) 0.02 K/uL (0-0.2); Basophils % (auto) 0.3 %; Eosinophils % (auto) 1.6 %; Hematocrit (blood only) 42.6 % (42-52); Hemoglobin 14.6 g/dL (14.0-18.0); Immature Granulocytes # (auto) 0.01 K/uL (0.00-0.02); Immature Granulocytes % (auto) 0.2 %; Lymphocytes # (auto) 1.98 K/uL (1.2-3.4); Lymphocytes % (auto) 32.2 %; Mean Corpuscular Hgb Conc 34.3 g/dL (32-36); Mean Corpuscular Volume 90.3 fL (80-100); Mean Platelet Volume 9.5 fL (7.4-10.4); Monocytes # (auto) 0.48 K/uL (0.11-0.59); Monocytes % (auto) 7.8 %; Neutrophils # (auto) 3.56 K/uL (1.4-6.5); Neutrophils % (auto) 57.9 %; Platelet Count 162 K/uL (130-400); RDW Coefficient of Variation 12.6 % (11.5-14.5); RDW Standard Deviation 41.7 fL (36.4-46.3); Red Blood Count 4.72 M/uL (4.7-6.1); White Blood Count 6.15 K/uL (4.8-10.8)
[2018-09-10 08:14] LABS: BUN Creatinine Ratio 14.1 (10-20); Calcium 8.5 mg/dl (8.5-10.1); Creatinine Clr Calc Pharmacy 53.3 ml/min; Est GFR (African American) 65.4; Est GFR (Non-African American) 56.5; Potassium 3.8 mmol/L (3.5-5.1)
--- NOTE | 2018-09-10 08:39 | Neurology Progress Note ---
Date of Service September 10, 2018 Assessment & Plan (1) Vertigo: Patient had an acute onset vertigo, referable to left inner ear. He had left ear pain and fullness with hearing loss. He likely has congestion in that ear triggering the vertigo. He had nausea, vomiting, and balance issues with the vertigo, as well as some blurriness with looking to the left due to his significant nystagmus. All of this pointed to the left inner ear. He is improved with his vision. He has no other neurologic deficits including no focal findings, meningeal signs , or encephalopathy. MRI of the brain showed no acute stroke. (2) Right arm weakness: He has had some intermittent right hand numbness for the last week. Currently he does not have this. He describes it to me as more of a numbness than a weakness and it is intermittent. He has a negative Tinel sign over the median nerve at the wrist but I suspect carpal tunnel syndrome. Recommendations: 1. Benzodiazepines such as lorazepam or diazepam for short-term use for vertigo , as needed. Meclizine may help , especially as his vertigo improves. It will not make him as sleepy as the benzodiazepines, obviously. 2. Increase activity as able 3. Consider EMG and nerve conduction study of the right upper extremity as an outpatient. 4. Patient will be seeing ENT as an outpatient. 5. Otherwise, please contact me if I can be of further assistance on this case. Overall, I spent a total of 25 minutes with this case including review of records, direct evaluation the patient at bedside, and discussion of the case with the patient at bedside. Subjective Patient still has some intermittent vertiginous feelings but he is much better than he was compared to 2 days ago. He does not have any specific vertigo triggered by position change however. Sometimes it just occurs. He does not have any left ear pain anymore but he still has some congestion. He feels that his hearing is normal. He has no vision issues. Blood pressure is 135/88 and he is afebrile. Today, CBC and Chem profile were unremarkable. Nursing reports no new problems overnight. Physical Exam 2 Vital Signs (Past 24 Hours): Last Vital Signs Temp 36.6 C 09/10/18 07:00 Pulse 65 09/10/18 07:00 Resp 18 09/10/18 07:00 BP 135/88 09/10/18 07:00 Pulse Ox 96 09/10/18 07:00 Physical Exam: He is awake and alert. Speech is without aphasia or dysarthria. Mood is normal affect is appropriate. Thought processes seem intact to conversation. He does have some memory gaps from 2 days ago around the time of his MRI. Extraocular eye muscles are intact all directions and there is no significant nystagmus noted. There is no facial droop. Coordination is normal in the arms. Stance sitting up is normal. Strength is symmetrical.
[2018-09-10] MEDS: FLUTICASONE PROPIONATE NA SPR 16 GM BTL SCH (09:24)
[2018-09-10] MEDS: ASPIRIN 81 MG ECTAB PO SCH (09:25)
[2018-09-10] MEDS: SODIUM CHLORIDE 0.65% NA SOLN 45 ML (OCEAN) SCH (09:25)
[2018-09-10] MEDS: METOPROLOL SUCC 50MG EXT REL TAB PO SCH (09:25)
[2018-09-10] MEDS: PRAVASTATIN SOD 20 MG TAB PO SCH (09:25)
--- NOTE | 2018-09-10 10:54 | Hospitalist Progress Note ---
Date of Service September 09, 2018 Assessment & Plan (1) Vertigo: 73 y/o M hx HTN, HLD, hypothyroidism. The pt presented primarily with severe vertigo, nausea and vomiting. He states that he felt like he could not hear out of his L ear for few days. He then picked up his phone today and when he abram to a full standing position with his head up, he became exceedingly dizzy. This persisted and was accompanied by profuse diaphoresis. He had to keep his eyes shut on route to the hospital and then vomited a few times on arrival. It was reported that he had clearly visible R gaze nystagmus on initial evaluation. He appeared to respond well to benzodiazepines and his symptoms had all but resolved at the time of medical evaluation. He describes sinus congestion leading up to his symptoms and denies a headache, fevers or unilateral weakness. The pt also describes some numbness in his R hand, however , this appears to be positional and is more consistent with carpal tunnel syndrome than a central issue. 1) Acute vertigo, nausea, vomiting, diaphoresis. Given his symptoms this sounds like Meniere's disease. Patient has received lorazepam, however this appears to have made him very groggy. He slept yesterday and no longer remebers the events of the day prior. Will limit benzo use and place patient on meclizine. Will also have patient continue on flonase and sudafed. Patient will be re-chandni; in the AM. Patient also notes due to the severe weather, he does not have a ride. Regarding his R hand numbness, it is described as distal numbness which resolves with positional change. I believe this is carpal tunnel syndrome and can be addressed in the outpt setting. 2) HTN- he may be taking Metoprolol more for an elevated HR and prior tachyarrhythmias rather than HTN. Blood pressure today is better. 3) HLD - cont Simvastatin. 4) Hypothyroidism - cont Synthroid Full code - Heparin prophylaxis Spent 55 minutes in management of patient. This included multiple visits to patients room. Subjective 73 yo male reports having less vertigo today. He states that he does not recall seeing me the day prior, eventhough his family states that he did speak with me. He is asking for an update. Patient also reports waking up with vertigo in the AM. This lasted for a few minutes. Patient reports though that his nausea is decreased. Currently he is sitting comfortably in a chair. Review of Systems Gen: Denies profuse diaphoresis ENT: Nasal congestion and transient L sided hearing loss (improved today) Eyes: Describes inability to focus/vertigo CV: Denies CP, palpitations Pulmonary: Denies SOB, cough, wheezing GI: Denies diarrhea, constipation - N/V on arrival to hospital as above Neuro: Denies acute or unilateral weakness, acute gait impairment - vertigo as above Musculoskeletal: Denies joint pain, inflammation Endocrine: Denies polydipsia, polyuria Skin: Denies acute rashes or ulcers Physical Exam 2 Vital Signs (Past 24 Hours): Last Vital Signs Temp 36.7 C 09/09/18 15:00 Pulse 58 09/09/18 15:00 Resp 18 09/09/18 15:00 BP 137/80 09/09/18 15:00 Pulse Ox 96 09/09/18 15:00 Physical Exam: General: AAO x 3, no distress ENT: No erythema or exudates, no thrush - L ear exhibits mild wax build up; some fluid noted behind tympanic membrane. Eyes: AUSTIN, EOMI Head and neck: Normocephalic, atraumatic, No JVD, neck is supple. Chest/heart: Nontender, S1,2, RRR, no murmurs, no gallops Lungs: CTAB, no wheezing or crackles Abdomen: Nontender, nondistended, BS+ Neuro: AAO x 3, speech is clear, no unilateral weakness or loss of sensation, coordination intact Musculoskeletal: No joint inflammation, muscle tenderness, FROM Skin: No acute rashes or ulcers Extremities: No clubbing, cyanosis, edema
[2018-09-10] MEDS ORDERED: PSEUDOEPHEDRINE HCL 30 MG TAB PO STA (12:14)
--- NOTE | 2018-09-14 08:21 | Discharge Summary ---
Date of Service September 10, 2018 Admission HPI Per Admitting Provider 73 y/o M hx HTN, HLD, hypothyroidism. The pt presented primarily with severe vertigo, nausea and vomiting. He states that he felt like he could not hear out of his L ear for few days. He then picked up his phone today and when he abram to a full standing position with his head up, he became exceedingly dizzy. This persisted and was accompanied by profuse diaphoresis. He had to keep his eyes shut on route to the hospital and then vomited a few times on arrival. It was reported that he had clearly visible R gaze nystagmus on initial evaluation. He appeared to respond well to benzodiazepines and his symptoms had all but resolved at the time of medical evaluation. He describes sinus congestion leading up to his symptoms and denies a headache, fevers or unilateral weakness. The pt also describes some numbness in his R hand, however , this appears to be positional and is more consistent with carpal tunnel syndrome than a central issue. PMH: 1) HTN 2) HLD 3) Hypothyroidism 4) Histroy of GI bleeding - no definitive source Surgical: 1) Tayo fundoplication 2) Umbilical hernia repair Family: No history of CVA - father had a brain tumor Social: Does not smoke or drink. 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 Principal Diagnosis vertigo, likely meniere's disease Discharge Exam General: AAO x 3, no distress ENT: No erythema or exudates, no thrush - L ear exhibits mild wax build up; some fluid noted behind tympanic membrane. Eyes: [place], EOMI Head and neck: Normocephalic, atraumatic, No JVD, neck is supple. Chest/heart: Nontender, S1,2, RRR, no murmurs, no gallops Lungs: CTAB, no wheezing or crackles Abdomen: Nontender, nondistended, BS+ Neuro: AAO x 3, speech is clear, no unilateral weakness or loss of sensation, coordination intact Musculoskeletal: No joint inflammation, muscle tenderness, FROM Skin: No acute rashes or ulcers Extremities: No clubbing, cyanosis, edema Discharge Data Allergies Allergy/AdvReac Type Severity Reaction Status Date / Time strawberry Allergy Intermediate Hives Verified 09/07/18 23:55 tomato Allergy Intermediate Hives Verified 09/07/18 23:55 Penicillins Allergy Unknown UKN Unverified 09/07/18 23:53 Consultations 09/08/18 00:20 ED Decision to Admit Stat 09/08/18 04:15 Consult Case Management - Discharge Planning Routine Consult Neurology Routine Ordered Studies 09/07/18 23:14 CT angio head wo/w Urgent CT angio neck with con Urgent 09/08/18 04:15 MR brain wo con Stat Hospital Course (1) Vertigo: 73 y/o M hx HTN, HLD, hypothyroidism. The pt presented primarily with severe vertigo, nausea and vomiting. He states that he felt like he could not hear out of his L ear for few days. He then picked up his phone today and when he abram to a full standing position with his head up, he became exceedingly dizzy. This persisted and was accompanied by profuse diaphoresis. He had to keep his eyes shut on route to the hospital and then vomited a few times on arrival. It was reported that he had clearly visible R gaze nystagmus on initial evaluation. He appeared to respond well to benzodiazepines and his symptoms had all but resolved at the time of medical evaluation. He describes sinus congestion leading up to his symptoms and denies a headache, fevers or unilateral weakness. The pt also describes some numbness in his R hand, however , this appears to be positional and is more consistent with carpal tunnel syndrome than a central issue. 1) Acute vertigo, nausea, vomiting, diaphoresis. Given his symptoms this sounds like Meniere's disease. Patient has received lorazepam, however this appears to have made him very groggy. He slept on first day of admission and no longer remembers the events of that day. Will limit benzo use and placed patient on meclizine. Will also have patient continue on flonase and sudafed. Patient improved over course of his 2 day hospital stay. Will discharge patient on meclizine prn, and will f/u with ENT as an outpatient Regarding his R hand numbness, it is described as distal numbness which resolves with positional change. I believe this is carpal tunnel syndrome and can be addressed in the outpt setting. 2) HTN- he may be taking Metoprolol more for an elevated HR and prior tachyarrhythmias rather than HTN. Blood pressure today is better. 3) HLD - cont Simvastatin. 4) Hypothyroidism - cont Synthroid Total Time Total Time Spent Total Time Spent (In Minutes): 33 Total Time Includes: Examination of the Patient, Discharge Planning and Medication Reconciliation Discharge Plan Discharge Items Patient Disposition: Home - Self-Care Reason For Visit: VERTIGO Discharge Diagnosis: Vertigo Discharge Goals: Decrease discomfort and Improve function Activity: Resume your previous activity Non-emergency contact: Primary Care Provider and Neurologist Call non-emergency contact if: you have any medication questions Follow-up/Referrals: Jorge A Saucedo MD, [facility] [Physician] - 09/28/18 2:05 pm (Please, follow up at [facility] on FridaySeptember 28 at 2:20 pm (arrive 2:05 pm). This is regarding treatment for dizziness. *This office is located at [address] [place] [address] in [facility]. If you need to change this appointment, call the office at [phone]. THIS WAS THE FIRST AVAILABLE APPOINTMENT. IF AN EARLIER APPOINTMENT BECOMES AVAILABLE, THE NURSE WILL CALL YOU) Stanislav Solitario [Primary Care Provider] - 09/14/18 9:30 am (Please, follow up at Dr. Solitario's office with her associate, Evelyn NARAYANAN, on FridaySeptember 14 at 9:30 am. *If you need to change this appointment, call the office at [phone]. ) Diet: Heart Healthy Add Provider Instructions: You were treated for vertigo. Given your symptoms this sounds like it could be meniere's disease. Will have you followup with ENT. Will order meclizine for a PRN order. Triggers for Meniere disease may include high salt intake, caffeine, alcohol, nicotine, stress, monosodium glutamate (MSG), and allergies. Avoidance for patients with identified triggers may alleviate or ameliorate symptoms Prescriptions: New aspirin [Ecotrin Low Strength] 81 mg Tablet,Delayed Release (Dr/Ec) 81 mg PO QAM Qty: 30 RF: 0 fluticasone 50 mcg/actuation [place],Suspension 1 spry NA BID Qty: 1 RF: 0 sodium chloride [Saline Mist] 0.65 % Aerosol,[place] 2 spry NA BID Qty: 1 RF: 0 meclizine 25 mg tablet 25 mg PO QID PRN (Reason: dizziness) Qty: 20 RF: 0 Continue levothyroxine 25 mcg Tablet 25 mcg PO DAILY RF: 0 metoprolol succinate 50 mg Tablet Extended Release 24 Hr 50 mg PO DAILY RF: 0 pravastatin 20 mg Tablet 20 mg PO DAILY RF: 0 lisinopril 20 mg Tablet 20 mg PO DAILY RF: 0 Stand-Alone Forms: [facility] Discharge Orders: Discharge Order (Routine); Ordered 09/10/18 Ordered By: Jared Joseph Admission Data Admit Date/Time: 09/08/18 03:08 Attending Provider: Jared Joseph Admit Provider: Kimani Lovell Primary Care Provider: Stanislav Solitario Other Providers: Kimani Lovell Emile Pierre III Service: Medical Other Interventions: Discharge Summary Assessment (RN) Last Done: 09/10/18 12:54 DC Date/Time DO NOT enter until pt leaves facility: 09/10/18 13:44
== END 2018-09-10 13:44 | disposition home or self-care (01) ==
LOC: 2S 22:46 → ED 22:46 → SUATTDRO 09-08 03:08 → 2S 09-08 03:51 → 4W 09-08 15:30

== ENCOUNTER 2023-06-28 09:39 | Inpatient (IN) ==
[2023-06-28] MEDS ORDERED: LIDOCAINE 1%/EPINEPHRINE 1:100,000 20 ML VIAL ONE (09:53)
[2023-06-28] MEDS ORDERED: TXA 10% Non-IV Routes 100 MG/ML VIAL ONE (09:55)
--- NOTE | 2023-06-28 10:07 | Emergency Department Note ---
ED Provider Note History of Present Illness Chief Complaint: Laceration/Cut (Non-Suture) Stated Complaint: LAC ON L KNEE Time Seen by Provider: 06/28/23 10:01 This is a 78-year-old male who presents to the emergency department with a laceration overlying his left knee. This occurred prior to arrival secondary to a chainsaw accident. Patient was cutting a tree when the tree shifted and forced the chainsaw into his knee. He notes a significant amount of oozing bleeding, but denies any spurting bleeding. Has been able to walk but has a lot of pain when he tries to bend his knee. Denies any numbness or tingling or decreased range of motion in his toes. Tetanus was updated within the past year. He is not immunocompromised. No history of diabetes. Allergy to penicillin, rash. Does not take any blood thinners Home Medications Medication Instructions Recorded Confirmed Type levothyroxine 25 mcg tablet 25 mcg PO QAM 09/07/18 06/28/23 History pravastatin 20 mg tablet 20 mg PO QAM 09/07/18 06/28/23 History meclizine 25 mg tablet 25 mg PO TID PRN dizziness #30 tabs 11/01/22 06/28/23 Rx lisinopril 40 mg tablet 40 mg PO QAM 01/29/23 06/28/23 History metoprolol tartrate 25 mg tablet 12.5 mg PO DAILY 01/29/23 06/28/23 History Allergies Allergy/AdvReac Type Severity Reaction Status Date / Time Penicillins Allergy Severe Hives and Unverified 06/28/23 11:19 I get hot all over prednisone Allergy Severe hives Unverified 06/28/23 11:19 strawberry Allergy Intermediate Hives Verified 06/28/23 11:19 tomato Allergy Intermediate Hives Verified 06/28/23 11:19 Past Med/Surg History Medical History Sensorineural hearing loss (SNHL) of left ear with restricted hearing of right ear Hypertension Hypothyroidism Surgical History History of Juan fundoplication History of appendectomy Family History Mother , in her 60s with brain aneurysm and senile dementia of the Alzheimer's type Alzheimer disease Father , age 66 of renal cell carcinoma and brain tumor Brain tumor Social History Smoking Status: Never smoker Tobacco Type: Smokeless Tobacco (Dip or Chew) Second Hand Exposure: No; Do You Dip or Chew Tobacco: Yes; Hx Alcohol Use: No Hx Substance Use: No Preferred Language: Indonesian Communication Ability: Effective Visual Impairment: No Limitations Hearing Ability: Normal Smocker Required: No Beliefs That Will Affect Care: None Current Living Situation: Spouse current occupational status: retired 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 Other Information That Helps Us Care for You: No Feels Safe at Home: Yes Safety Concerns: Feels Safe At This Time Assistive Devices: Glasses and Hearing Aid - Bilateral Physical Exam Vital Signs Vital Signs - 24 hr 06/28/23 09:41 06/28/23 10:58 06/28/23 15:51 Temperature 98.2 F 97.2 F L Temperature Source Temporal Artery Scan Temporal Artery Scan Pulse Rate 70 Pulse Rate [Apical] 92 H Pulse Rate [Finger] 74 Pulse Rhythm [Apical] Regular Respiratory Rate 16 18 16 Respiratory Effort / Characteristics Non-Labored Non-Labored Spontaneous Non-Labored Spontaneous Respiratory Depth Normal Normal Normal Respiratory Pattern Regular Blood Pressure 161/98 H Blood Pressure [Right Arm] 122/83 106/78 Blood Pressure Mean 119 Blood Pressure Mean [Right Arm] 96 87 Blood Pressure Position [Right Arm] Lying Pulse Oximetry 97 100 95 Oxygen Delivery Method Room Air Room Air Oxymask Oxygen Flow Rate 5 Sepsis Recent Fever Within 48 Hours No Sepsis New/Unexplained Change in Mental Status No Sepsis Action Taken by Nursing No Action Required CONSTITUTIONAL: Well developed, well nourished, in no acute distress. RESPIRATORY: Breathing unlabored and symmetric. CARDIOVASCULAR: DP and PT pulses 2+ bilaterally MUSCULOSKELETAL: Left lower extremity: There is a large horizontal laceration overlying the patella. This appears to extend down into the patellar tendon. There is mild venous bleeding present. No arterial component. Patient able to raise the leg straight off the stretcher. SKIN: [place], warm, dry. NEUROLOGIC: Awake, alert, oriented. No sensory deficits in bilateral lower extremities including distal to the wound on the left knee Course Administered Medications Acetaminophen (Acetaminophen 500 Mg Tab) 1,000 mg PO Q8 GEE Stop: 07/28/23 21:59 Last Admin: 06/28/23 21:26 Dose: 1,000 mg Docusate Sodium (Docusate Sodium 100 Mg Cap) 100 mg PO BID GEE Stop: 07/28/23 20:59 Last Admin: 06/28/23 21:26 Dose: 100 mg Sodium Chloride (Nss) 1,000 mls @ 100 mls/hr IV .Q10H GEE Stop: 07/28/23 17:08 Last Admin: 06/28/23 17:28 Dose: Not Given Documented By: ABIGAIL Sodium Chloride (Nss) 1,000 mls @ 100 mls/hr IV .Q10H GEE Stop: 06/29/23 06:00 Last Admin: 06/28/23 17:28 Dose: 100 mls/hr Documented By: ABIGAIL Cefazolin Sodium (Ancef 2000mg) 2,000 mg in 15 mls @ 3.75 mls/min IV Q8H GEE; Protocol Stop: 06/29/23 06:03 Last Admin: 06/28/23 21:27 Dose: 3.75 mls/min Ketorolac Tromethamine (Ketorolac Tromethamine 15 Mg/Ml Vial) 15 mg IV Q6H PRN PRN Reason: pain Last Admin: 06/28/23 19:39 Dose: 15 mg Documented By: LEORA Oxycodone HCl (Oxycodone Hcl Ir 5 Mg Tab (Immediate Release)) 5 - 10 mg PO Q4H PRN PRN Reason: Pain or Pre PT Stop: 07/12/23 17:08 Last Admin: 06/28/23 18:45 Dose: 5 mg Documented By: ABIGAIL Sennosides (Senna 8.6 Mg Tab) 17.2 mg PO HS GEE Stop: 07/28/23 20:59 Last Admin: 06/28/23 21:26 Dose: 17.2 mg Discontinued Medications Fentanyl Citrate (Fentanyl Citrate Pf 100 Mcg/2 Ml Vial) 25 mcg IV Q5M PRN PRN Reason: PACU Use Only-Pain Stop: 06/28/23 21:40 Last Admin: 06/28/23 16:33 Dose: 25 mcg Documented By: Admin: 06/28/23 16:25 Dose: 25 mcg Documented By: Admin: 06/28/23 16:20 Dose: 25 mcg Documented By: Admin: 06/28/23 16:13 Dose: 25 mcg Documented By: JESU Fentanyl Citrate (Fentanyl Citrate Pf 100 Mcg/2 Ml Vial) Confirm Administered Dose 100 mcg .ROUTE .STK-MED ONE Stop: 06/28/23 16:11 Last Admin: 06/28/23 17:28 Dose: Not Given Documented By: ABIGAIL Clindamycin Phosphate (Cleocin/D5w) 600 mg in 50 mls @ 100 mls/hr IV NOW ONE Stop: 06/28/23 10:40 Last Infusion: 06/28/23 13:32 Dose: Infused Documented By: Admin: 06/28/23 11:26 Dose: 100 mls/hr Documented By: OCTAVIO Ceftriaxone Sodium (Rocephin) 2,000 mg in 50 mls @ 100 mls/hr IV NOW STA Stop: 06/28/23 11:13 Last Infusion: 06/28/23 13:32 Dose: Infused Documented By: Admin: 06/28/23 11:00 Dose: 100 mls/hr Documented By: DALI Lidocaine/Epinephrine (Lidocaine 1%/Epinephrine 1:100,000 20 Ml Vial) Confirm Administered Dose 1 ml .ROUTE .STK-MED ONE Stop: 06/28/23 09:54 Last Admin: 06/28/23 17:29 Dose: Not Given Documented By: ABIGAIL Tranexamic Acid (Txa 10% Non-Iv Routes 100 Mg/Ml Vial) Confirm Administered Dose 1,000 mg .ROUTE .STK-MED ONE Stop: 06/28/23 09:56 Last Admin: 06/28/23 17:29 Dose: Not Given Documented By: ABIGAIL Medical Decision Making Differential Diagnosis Fracture, dislocation, subluxation, patellar tendon injury, laceration, foreign body, neurovascular injury, among other pathology Imaging Data Attestation: I personally reviewed and interpreted this imaging study as follows: (I agree with the radiologist's interpretation) Radiologist's Impression: Knee X-Ray 06/28/23 00:00 INTRAOPERATIVE RADIOGRAPHS CLINICAL HISTORY: Open reduction and internal fixation of the left patella. Fluoro time: 11 seconds Ka,r: 0.77 mGy FINDINGS: 4 spot fluoroscopic views of the left knee are presented. Correlation is made with radiographs performed the same day 06/28/2023. 2 pins have been placed transfixing a comminuted fracture through the inferior aspect of the patella. Overlying soft tissue edema is noted. IMPRESSION: Intraoperative images from open reduction and internal fixation of the left patella as above. Electronically signed by: Zach Rush M.D. 06/28/2023 4:58 PM Knee X-Ray 06/28/23 10:01 LEFT KNEE 3 VIEWS CLINICAL HISTORY: Trauma. Chainsaw injury to the patella. FINDINGS: AP, crosstable lateral, and sunrise views of the left knee are obtained. No prior studies are available for comparison at the time of dictation. The skeletal structures are well mineralized. There is a comminuted horizontally oriented fracture through the inferior third of the patella with numerous tiny displaced fragments. The largest fragments are offset by up to 4 mm. There is overlying soft tissue injury/laceration with gas within the o verlying soft tissues/joint space. No additional acute fracture is clearly seen. The joint spaces are maintained. A joint effusion is noted. Numerous radiodensities anterior to the patella likely represent bone fragments. Foreign bodies are not excluded. IMPRESSION: 1. Comminuted patellar fracture as detailed above with overlying soft tissue injury/laceration. 2. No additional fracture is seen. 3. Joint effusion. 4. Numerous radiodensities anterior to the patella likely represent bone fragments. Foreign bodies are not excluded. Electronically signed by: Zach Rush M.D. 06/28/2023 11:35 AM MDM Narrative 78-year-old male presents to the emergency department with a large wound overlying his patella secondary to a chainsaw accident. See above for further details. Wound is large and appears to extend down into the patellar tendon though the patient is able to raise the leg off the stretcher. He has neurovascularly intact. Wound was injected with 8 mL lidocaine 1% with epinephrine to encourage hemostasis. Was also also therapeutic at controlling the patient's discomfort. X-ray of the left knee was obtained and initially interpreted by myself demonstrating air in the joint as well as a patellar fracture. IV was inserted. IV clindamycin and ceftriaxone was initiated after reviewing with ED clinical pharmacist. Case was reviewed with orthopedics on-call Dr. Sylvester who evaluated patient at bedside and will admit him and take him to the operating room for washout and repair of the patella tendon injury as well as wound closure. Case also reviewed with ED attending Dr. Mccracken who agrees with assessment and plan. Patient is comfortable with this plan. Impression Open comminuted fracture of left patella, Contact with chainsaw as cause of accidental injury Discharge Plan Visit Data Chief Complaint: Laceration/Cut (Non-Suture) Stated Complaint: LAC ON L KNEE ED Provider: Todd Mccracken ED Midlevel Provider: Rafy Ramos Discharge Problem: Open comminuted fracture of left patella, Contact with chainsaw as cause of accidental injury Patient Disposition: Admitted As Inpatient Condition: Fair Discharge Instructions Interventions: ED Discharge Assessment Last Done: 06/28/23 12:00
[2023-06-28] MEDS ORDERED: CLINDAMYCIN/D5W 600 MG/50 ML BAG IV ONE (10:11)
[2023-06-28] MEDS ORDERED: cefTRIAXone SODIUM 2,000 MG/50 ML BAG IV STA (10:44)
--- NOTE | 2023-06-28 11:36 | XRay Report ---
LEFT KNEE 3 VIEWS CLINICAL HISTORY: Trauma. Chainsaw injury to the patella. FINDINGS: AP, crosstable lateral, and sunrise views of the left knee are obtained. No prior studies a re available for comparison at the time of dictation. The skeletal structures are well mineralized. T here is a comminuted horizontally oriented fracture through the inferior third of the patella with nu merous tiny displaced fragments. The largest fragments are offset by up to 4 mm. There is overlying s oft tissue injury/laceration with gas within the overlying soft tissues/joint space. No additional ac [place] fracture is clearly seen. The joint spaces are maintained. A joint effusion is noted. Numerous ra diodensities anterior to the patella likely represent bone fragments. Foreign bodies are not excluded . IMPRESSION: 1. Comminuted patellar fracture as detailed above with overlying soft tissue injury/laceration. 2. No additional fracture is seen. 3. Joint effusion. 4. Numerous radiodensities anterior to the patella likely represent bone fragments. Foreign bodies ar e not excluded. Electronically signed by: Zach Rush M.D. 06/28/2023 11:35 AM
--- NOTE | 2023-06-28 12:05 | Emergency Department Note ---
ED Visit Note I have personally evaluated this patient examined him and reviewed the pertinent labs and data. I have discussed the case with Rafy Tyalor, the physician personal assistant and agree with the plan. Please refer to the PA note This patient inadvertently suffered a laceration with a chainsaw injury to his left patella area. He has a very complex laceration looks deep. We did look at the x-ray and upon my personal interpretation he does have a patellar fracture with some air within the joint itself. He has been given IV antibiotics, with ceftriaxone and clindamycin after consultation with her ED pharmacist. When I went to examine him Dr. Sylvester was in the room talking to the patient as he can to take him to the OR for washout. .
--- NOTE | 2023-06-28 12:47 | History & Physical Report ---
Date of Service June 28, 2023 Assessment & Plan (1) Contact with [employer] as cause of accidental injury: (2) Open comminuted fracture of left patella: Plan Healthy and active 78-year-old male with an open patella fracture from a chainsaw injury. My recommendation is for urgent surgical management for left open patella fracture irrigation debridement, possible partial patellectomy versus open reduction and internal fixation. I discussed this with him in person today in the emergency room. He was agreeable with the plan. We reviewed the diagnosis, prognosis and treatment options in detail. I reviewed the risks and benefits of surgery. The risks include, but are not limited to, infection, need for subsequent surgery, arthrofibrosis of the knee, nerve or vessel injury, implant complications requiring secondary surgery, nonunion, malunion, loss of strength or motion about the knee, pain syndromes, blood clots, and complications related to anesthesia. Nonsurgical treatment is associated with an unacceptable risk of infection and knee extensor dysfunction. Appreciate ED management with initial wound and expeditious IV antibiotics. I will admit to the orthopedic service. Routine testing preanesthesia testing. He is on-call today for the operating room. History of Present Illness Chief Complaint: Left open patella fracture, chainsaw injury Primary Care Provider: Stanislav Solitario MD 78-year-old otherwise fairly healthy and active male sustained an injury to his left knee today while cutting wood. His chainsaw slipped and hit him in the front of the knee while wearing regular jeans. He had immediate pain and bleeding. He was able to ambulate. He was brought to the ER by his friend. No prior knee conditions requiring treatment. Tetanus status being checked by ER. Denies any numbness or tingling. He says the pain is quite tolerable right now. He last had coffee this morning at 0700 and had no other food today. Allergies Allergy/AdvReac Type Severity Reaction Status Date / Time Penicillins Allergy Severe Hives and Unverified 06/28/23 11: I get hot all over prednisone Allergy Severe hives Unverified 06/28/23 11:19 strawberry Allergy Intermediate Hives Verified 06/28/23 11:19 tomato Allergy Intermediate Hives Verified 06/28/23 11:19 Home Medications Medication Instructions Recorded Confirmed Type levothyroxine 25 mcg tablet 25 mcg PO QAM 09/07/18 06/28/23 History pravastatin 20 mg tablet 20 mg PO QAM 09/07/18 06/28/23 History meclizine 25 mg tablet 25 mg PO TID PRN dizziness #30 tabs 11/01/22 06/28/23 Rx lisinopril 40 mg tablet 40 mg PO QAM 01/29/23 06/28/23 History metoprolol tartrate 25 mg tablet 12.5 mg PO DAILY 01/29/23 06/28/23 History Past Med/Surg History Medical History Sensorineural hearing loss (SNHL) of left ear with restricted hearing of right ear Hypertension Hypothyroidism Surgical History History of Juan fundoplication History of appendectomy Family History Mother , in her 60s with brain aneurysm and senile dementia of the Alzheimer's type Alzheimer disease Father , age 66 of renal cell carcinoma and brain tumor Brain tumor Social History Smoking Status: Never smoker Second Hand Exposure: No; Do You Dip or Chew Tobacco: Yes; Hx Alcohol Use: Yes Hx Substance Use: No Preferred Language: Israeli Communication Ability: Effective Visual Impairment: No Limitations Hearing Ability: Normal Registered Respiratory Therapist Required: No Beliefs That Will Affect Care: None Current Living Situation: Spouse current occupational status: retired 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 Physical Exam LLE: Dressing taken down. Diagonally oriented chainsaw laceration with maceration across the middle of the patella. Full-thickness wound with obvious retinacular involvement. Able to form a straight leg raise with good comfort. Distally neurovascular intact. Constitutional well developed and well nourished; no acute distress and not intoxicated appearing ENMT external ear and nose normal, oropharynx normal Respiratory normal respiratory effort; no respiratory distress Cardiovascular Extremities: normal capillary refill; no edema Skin no rashes, warm and dry Psychiatric A+Ox3, euthymic affect Results & Data Results & Data Laboratory Results . Diagnostic Findings Radiographs of the left knee demonstrate a comminuted patella fracture with bony particulate debris throughout open patella wound. Soft tissue shadows suggest air within the suprapatella pouch. PG Care Time/CCT Total # of Minutes Spent Total Time Spent with Patient: Total time spent is greater than 50% in coordination of care (as documented) at patient's floor/unit and/or counseling patient: Coding Level of Care Code 68959 INT INP/OBS CARE 3/75MIN (57 - DECISION FOR SURGERY) Diagnoses Contact with chainsaw as cause of accidental injury W29.3XXA Open comminuted fracture of left patella S82.042B
--- NOTE | 2023-06-28 12:57 | Anesthesiology Consultation ---
Date of Service June 28, 2023 Assessment & Plan Chart Review Chart Review: Acceptable Risk for Surgery and Patient NOT seen in Pre Admission Testing Consults Requested none History Surgery Operation Date: 06/28/23 12:15 Proposed Procedures p Open Reduction Internal Fixation Patella(Left) - Izaiah Sylvester MD Height/Weight Height: 5 ft 7 in Weight: 83.2 kg Allergies Allergy/AdvReac Type Severity Reaction Status Date / Time Penicillins Allergy Severe Hives and Unverified 06/28/23 11:19 I get hot all over prednisone Allergy Severe hives Unverified 06/28/23 11:19 strawberry Allergy Intermediate Hives Verified 06/28/23 11:19 tomato Allergy Intermediate Hives Verified 06/28/23 11:19 Medications Home Medications Medication Instructions Recorded Confirmed Last Taken levothyroxine 25 mcg tablet 25 mcg PO QAM 09/07/18 06/28/23 06/28/23 pravastatin 20 mg tablet 20 mg PO QAM 09/07/18 06/28/23 06/27/23 meclizine 25 mg tablet 25 mg PO TID PRN dizziness #30 tabs 11/01/22 06/28/23 Unknown lisinopril 40 mg tablet 40 mg PO QAM 01/29/23 06/28/23 06/28/23 metoprolol tartrate 25 mg tablet 12.5 mg PO DAILY 01/29/23 06/28/23 06/27/23 Past Medical History Medical History Sensorineural hearing loss (SNHL) of left ear with restricted hearing of right ear Hypertension Hypothyroidism Past Family History Family History Mother , in her 60s with brain aneurysm and senile dementia of the Alzheimer's type Alzheimer disease Father , age 66 of renal cell carcinoma and brain tumor Brain tumor Past Surgical History Surgical History History of Juan fundoplication History of appendectomy Social History Smoking Status: Never smoker tobacco type: smokeless tobacco Do You Dip or Chew Tobacco: Yes Hx Alcohol Use: Yes alcohol intake frequency: holidays/special occasions only Hx Substance Use: No substance use type: does not use Physical Exam Vital Signs Last Vital Signs Temp 36.8 C 06/28/23 09:41 Pulse 74 06/28/23 10:58 Resp 18 06/28/23 10:58 BP 122/83 06/28/23 10:58 Pulse Ox 100 06/28/23 10:58 O2 Del Method Room Air 06/28/23 10:58 Constitutional well developed and well nourished; no acute distress and not intoxicated appearing ENMT external ear and nose normal, oropharynx normal Respiratory normal respiratory effort; no respiratory distress Cardiovascular Extremities: normal capillary refill; no edema Skin no rashes, warm and dry Psychiatric A+Ox3, euthymic affect
[2023-06-28] MEDS ORDERED: ONDANSETRON INJ 2 MG/ML 2 ML VIAL ONE (13:26)
[2023-06-28] MEDS ORDERED: LIDOCAINE 2% 2 ML VIAL/AMP(20MG/ML) INFIL ONE (13:26)
[2023-06-28] MEDS ORDERED: PROPOFOL IV EMULSION 10 MG/ML 20 ML VIAL IV ONE (13:26)
[2023-06-28] MEDS ORDERED: fentaNYL citrate PF 100 MCG/2 ML VIAL ONE ×3 (13:26→16:10)
[2023-06-28] MEDS ORDERED: DEXAMETHASONE SOD INJ 4 MG/ML VIAL ONE (13:26)
[2023-06-28] MEDS ORDERED: ROCURONIUM BROMIDE 10 MG/ML 5 ML VIAL IV ONE (13:30)
[2023-06-28] MEDS ORDERED: SUCCINYLCHOLINE CHLORIDE 20 MG/ML 10 ML VIAL IV ONE (13:30)
[2023-06-28] MEDS ORDERED: ePHEDrine sulfate 50 MG/ML AMP IV PRN (13:40)
[2023-06-28] MEDS ORDERED: ONDANSETRON INJ 2 MG/ML 2 ML VIAL IV PRN ×2 (13:40→17:09)
[2023-06-28] MEDS ORDERED: ATROPINE SULFATE 0.1 MG/ML 10ML SYR IV PRN (13:40)
[2023-06-28] MEDS ORDERED: ceFAZolin 330 MG/ML 1 GM VIAL ONE (13:53)
[2023-06-28] MEDS ORDERED: PHENYLEPHRINE 100MCG/ML 10ML SYR IV ONE (14:25)
[2023-06-28] MEDS ORDERED: ePHEDrine sulfate 50 MG/5 ML SYR ONE (14:25)
[2023-06-28] MEDS ORDERED: SUGAMMADEX SODIUM 200 MG/2 ML VIAL IV ONE (15:13)
--- NOTE | 2023-06-28 16:07 | Anesthesiology Progress Note ---
Date of Service June 28, 2023 Anesthesia Post Procedure Vital Signs Vital Signs: Temp Pulse Pulse Pulse Resp BP BP 06/28/23 16:00 94 H 15 120/77 06/28/23 15:51 36.2 C L 92 H 16 106/78 06/28/23 10:58 74 18 122/83 06/28/23 09:41 36.8 C 70 16 161/98 H Pulse Ox O2 Del Method O2 Flow Rate 06/28/23 16:00 96 Oxymask 5 06/28/23 15:51 95 Oxymask 5 06/28/23 10:58 100 Room Air 06/28/23 09:41 97 Room Air Transfer of Care Handoff Completed per policy Notes Mental Status: alert / awake / arousable Patient Amnestic to Procedure: Yes Nausea / Vomiting: adequately controlled Pain: adequately controlled Airway Patency, RR, SpO2: stable & adequate BP & HR: stable & adequate Hydration State: stable & adequate Anesthetic Complications: no major complications apparent
[2023-06-28] MEDS: fentaNYL citrate PF 100 MCG/2 ML VIAL IV PRN ×4 (16:13→16:33)
--- NOTE | 2023-06-28 16:15 | Operative Report ---
PG Post Operative Report Pre & Post Diagnosis Operation Date: 06/28/23 12:15 Pre-Op Diagnosis: Open comminuted fracture of left patella Post-Op Diagnosis: Open comminuted fracture of left patella I identified the patient and participated in the time-out.: Yes Procedure Operation Date: 06/28/23 12:15 Actual Procedures p Left Knee Irrigation and Debridement, Partial Patellectomy, Patella Tendon Repair(Left) - Izaiah Sylvester MD Surgeon Izaiah Sylvester MD Night Order Selector Carmel Mauricio PA-C Estimated Blood Loss 25 Findings See Below 10 cm traumatic laceration with devitalized skin. This was debrided. No gross contamination. After debridement the skin incision was approximately 12 cm. A large portion of the prepatellar bursa was involved and debrided. The joint space was violated through the fracture at the inferior pole. The joint was thoroughly irrigated. There was no gross contamination. Comminuted fracture involving a large portion of the dorsal cortex with devitalized fragments that were debrided. There was a fracture fragment involving the inferomedial portion of the patella of about 15% with a very small rim of cartilage that did not seem amenable to fixation. There were no redu ction keys because of the loss of the dorsal cortex, so it was debrided for partial patellectomy me. The superior medial rim of the patella was also fractured with a very small rim of cartilage. This was treated with partial patellectomy me as well. The quadricep tendon insertion was intact. The patella tendon was avulsed with that small inferior fragment. For that reason, repair of the medial 60% of the patella tendon was required. This was accomplished with 2 separate 2.0 mm parallel bone tunnels for a single core of fiber tape suture with 2 tails traversing the patella, tied over the superior pole of the patella. Specimens None Anesthesia Type General Regional Complications none Disposition Accompanied Patient To Recovery: No Disposition: Recovery Room Indications 78-year-old otherwise healthy and active male was cutting wood with a chainsaw today when he accidentally impacted the tip of his knee. This resulted in immediate bleeding. He was able to walk. He was brought to the ER where an open fracture of the patella was diagnosed with hemarthrosis. I saw him in the ER and recommended surgical management due to the open fracture. Reviewed the diagnosis, prognosis, and treatment options. I recommended surgical stabilization today. He was agreeable. Informed consent was obtained in the ER and confirmed in the preop holding area. Description of Procedure On the day of surgery, the patient was greeted in the preoperative holding area. The informed consent was reviewed and confirmed by myself and the patient. The patient identified the surgical site and was marked by me. The patient was then turned over to anesthesia. Patient was then taken to the operating place upon the OR table and anesthesia was induced. The airway was secured. A nonsterile tourniquet placed high in the thigh. Chlorhexidine scrub brush was then used to cleanse the wound and leg. It was tiled clean. Clippers were used to remove hair from the traumatic wound edges. The limb was then prepped and draped in usual sterile fashion for knee surgery. Betadine scrub and paint was used for the prep. Surgical timeout was called by the psychiatry adult physician nurse and verified all present. Antibiotics been infused equipment available and functional. An Esmarch bandage was used to exsanguinate the extremity, and the tourniquet was inflated to 250 mmHg for a total of 95 minutes. The traumatic incision was then incised around its borders to extend it and remove devitalized skin edges. The prepatellar bursa was involved and ecchymotic. There was no gross debris but there was significant soft tissue injury. Wide debridement was performed of the prepatellar bursa. The patellar retinacula was violated and there was an obvious fracture. The fracture fragment was in the inferomedial corner was missing its dorsal cortex. There was no reliable reduction cardenas. There is about 3 to 4 mm of cartilage on the undersurface of this fragment. Given the overall appearance of the wound and comminution involved, I felt it was best served with a partial patellectomy me and advancement of the tendon rather than risk internal fixation in the contaminated wound. There was also a fragment at the superior medial pole that was unstable and decorticated. This was excised as well. There were several fragments of the dorsal cortex that were debrided. The knee joint itself was explored there was no gross contamination. He seemed to have intact trochlear cartilage. We then began thorough irrigation using bulb syringe for a total of 3 L of normal saline. The table was then redraped and clean instruments were used from there on out. With a clean wound bed, began our repair. The partial patellectomy involve pr obably a total of 50% of the patella. He had loss of majority of the dorsal cortex and at inferior quadrant. The patella tendon was disconnected from the inferior pole after the patellectomy me. For that reason, I performed a typical patellar tendon repair using a single core of fiber tape suture. 2 parallel drill tunnels were made using 2 oh drill bits under fluoroscopic guidance. Shuttling sutures were placed using a [employer] suture passer. I then ran a fiber tape from [employer] in a running locking fashion distal and then back proximal. There were 2 tails were taken out the 2 tunnels. The knee was placed in extension, and the tight fiber tape was tied firmly to reduce the tendon to the fresh bone surface inferiorly. This completed our repair. The medial and lateral parapatellar retinaculum was intact and the patient can do a firm straight leg raise preoperatively. We then irrigated the wound with another liter of normal saline. Closure consisted of 0 Vicryl in the deep peritenon layer to cover the exposed tendon and patella bone surface where possible. Skin closure was accomplished using 0 Vicryl suture in the very deep layer of the dermis and some of the prepatellar bursa where possible. 2-0 Vicryl's used in the dermis, followed by final skin closure with batool. The wound was dressed with the jumpstart dressing from the fiber tape kit followed by sterile gauze, ABD, and web roll. An Farhad wrap was placed. The limb was placed in a standard postoperative range of motion brace locked in full extension, set for a lockout of 30 degrees flexion. Patient tolerated the procedure well, was extubated the operating room without complication, and was transported to the PACU in stable condition. Disposition: Patient will remain in the locked range of motion brace in full extension. He can weight-bear as tolerated with his brace in place. He can begin range of motion when not weightbearing from 0-30 only. Routine pain management will be prescribed. DVT prophylaxis will consist of early ambulation and oral aspirin 325 mg daily. Physician logging assistant attestation: Carmel Mauricio PA-C was present and scrubbed for the duration of the case. He was essential to prepping/draping, patient positioning, retraction, and assistance with wound closure. I attest to the content of the Intraoperative Record and any orders documented therein. Any exceptions are noted below.
--- NOTE | 2023-06-28 17:00 | Fluoroscopy Report ---
INTRAOPERATIVE RADIOGRAPHS CLINICAL HISTORY: Open reduction and internal fixation of the left patella. Fluoro time: 11 seconds Ka,r: 0.77 mGy FINDINGS: 4 spot fluoroscopic views of the left knee are presented. Correlation is made with radiogra phs performed the same day 06/28/2023. 2 pins have been placed transfixing a comminuted fracture thro ugh the inferior aspect of the patella. Overlying soft tissue edema is noted. IMPRESSION: Intraoperative images from open reduction and internal fixation of the left patella as ab ove. Electronically signed by: Zach Rush M.D. 06/28/2023 4:58 PM
[2023-06-28] MEDS ORDERED: KETOROLAC TROMETHAMINE 15 MG/ML VIAL IV PRN (17:09)
[2023-06-28] MEDS ORDERED: diphenhydrAMINE 50 MG/ML VIAL IV PRN (17:09)
[2023-06-28] MEDS ORDERED: NALOXONE HCL 0.4 MG/1 ML VIAL/CARP IV PRN (17:09)
[2023-06-28] MEDS ORDERED: bisacodyL 10 MG SUPP PR PRN (17:09)
[2023-06-28] MEDS ORDERED: METOCLOPRAMIDE HCL INJ 5 MG/ML 2 ML VIAL IV PRN (17:09)
[2023-06-28] MEDS ORDERED: MAGNESIUM HYDROXIDE SUSP 30 ML UDC PO PRN (17:09)
[2023-06-28] MEDS ORDERED: HYDROmorphone INJ 0.5 MG/0.5 ML SYR IV PRN (17:09)
[2023-06-28] MEDS ORDERED: HYDROmorphone INJ 1 MG/ML SYRINGE IV PRN (17:09)
[2023-06-28] MEDS ORDERED: MECLIZINE HCL 25 MG TAB PO PRN (17:19)
[2023-06-28] MEDS: SODIUM CHLORIDE 0.9% 1,000 ML IV SCH ×2 (17:28)
[2023-06-28] MEDS: oxyCODONE HCL IR 5 MG TAB (IMMEDIATE RELEASE) PO PRN ×2 (18:45→22:59)
[2023-06-28] MEDS ORDERED: SENNA 8.6 MG TAB PO SCH (21:00)
[2023-06-28] MEDS: ACETAMINOPHEN 500 MG TAB PO SCH (21:26)
[2023-06-28] MEDS: DOCUSATE SODIUM 100 MG CAP PO SCH (21:26)
[2023-06-28] MEDS: ceFAZolin 2000MG 2,000 MG/15 ML SYR IV SCH (21:27)
[2023-06-29] MEDS: SODIUM CHLORIDE 0.9% 1,000 ML IV SCH ×2 (02:51→04:21)
[2023-06-29] MEDS ORDERED: ceFAZolin 2000MG 2,000 MG/15 ML SYR IV SCH (06:00)
[2023-06-29] MEDS: ACETAMINOPHEN 500 MG TAB PO SCH ×2 (06:13→13:54)
[2023-06-29] MEDS: ceFAZolin 2000MG 2,000 MG/15 ML SYR IV SCH (06:13)
[2023-06-29] MEDS ORDERED: LEVOTHYROXINE SODIUM 25 MCG TABLET PO SCH (06:30)
--- NOTE | 2023-06-29 07:37 | Orthopedic Progress Note ---
Date of Service June 29, 2023 Assessment & Plan (1) Hx of knee surgery: - may be discharged from an ortho perspective when he ambulates well with PT/OT. - Medications sent to pharmacy of his choosing. - dressing may be changed at home POD 3. He may shower at that time - Follow-up outpatient in 2 weeks. Sandra Higuera is a 78-year-old male postop day 1 from a left open patella fracture I&D, patellectomy patella tendon repair. He states he is doing well. He states his pain is controlled at this time. He has not worked with therapy yet.. Discussed with him how to use the brace as well as the hygiene of his wound at postop day 3. Denies any numbness or tingling left lower extremity. Denies any other questions or concerns at today's postop check. Review of Systems All systems reviewed & are unremarkable except as noted in HPI & below. Physical Exam Alert and oriented. In no acute distress. He is resting comfortably in hospital bed. He has ice to his left knee. Brace in place and set to 0 degrees extension and 30 degrees flexion. Dressing was not changed as we wait until post op day 3. No saturation on the mark anthony wrap. NV intact. Constitutional WD/WN, vitals as above Respiratory normal respiratory effort and symmetric chest movement Cardiovascular Rate/Rhythm: regular rate Extremities: normal capillary refill Musculoskeletal as above Psychiatric A+Ox3, euthymic affect Results & Data Results & Data Laboratory Results . PG Care Time/CCT Total # of Minutes Spent Total Time Spent with Patient: Total time spent is greater than 50% in coordination of care (as documented) at patient's floor/unit and/or counseling patient: Supervising Physician Co-Signing Physician Notes Agree with the above note. He was independently seen by me. We will discharge after 24-hour period of parenteral IV therapy for his open fracture. Discharge this afternoon. Coding Level of Care Code 23626 Post Operative Follow-Up Diagnoses Hx of knee surgery Z98.890
--- NOTE | 2023-06-29 07:45 | Discharge Summary ---
Date of Service June 29, 2023 Admission HPI Per Admitting Provider On 06/28/2023, the patient reported to the ED after a chain saw injury to the left knee that occurred while he was sawing wood for his wood stove. He underwent a Left Knee Irrigation and Debridement, Partial Patellectomy, Patella Tendon Repair on 06/29/2023. He tolerated the procedure well. He is in a hinged knee brace locked in extension for ambulation (WBAT) and can be open from 0-30 degrees when in bed and working with therapy at bedside. He received periop abx and abx during his stay overnight. Updated tetanus at ED. No other questions or concerns at this time. Admission Exam (Per Admitting) Constitutional WD/WN, vitals as above Respiratory normal respiratory effort Cardiovascular Rate/Rhythm: regular rate Extremities: normal capillary refill Musculoskeletal He is resting comfortably in hospital bed. He has ice to his left knee. Brace in place and set to 0 degrees extension and 30 degrees flexion. Dressing was not changed as we wait until post op day 3. No saturation on the mark anthony wrap. NV intact. Discharge Data Consultations 06/28/23 12:17 ED Decision to Admit Stat Procedures Performed Operation Date: 06/28/23 12:15 Actual Procedures p Left Knee Irrigation and Debridement, Partial Patellectomy, Patella Tendon Repair(Left) - Izaiah Sylvester MD Hospital Course (1) Hx of knee surgery: Patient was admitted from the emergency room for surgery because of the open fracture. He had gotten antibiotics upon arrival and diagnosis in the emergency room. Same-day irrigation and debridement, partial patellectomy me, and patella tendon repair was performed without complication. He remained inpatient for a period of parenteral antibiotics for standard treatment of an open fracture. He had no complications during his stay and was found stable for discharge after his antibiotic treatment. - may be discharged from an ortho perspective when he ambulates well with PT/OT. - Medications sent to pharmacy of his choosing. - dressing may be changed at home POD 3. He may shower at that time - Follow-up outpatient in 2 weeks. Discharge Instructions as below Coding Level of Care Code 05903 INP/OBS DISCH >30 MIN Diagnoses Hx of knee surgery Z98.890
[2023-06-29] MEDS: DOCUSATE SODIUM 100 MG CAP PO SCH (08:26)
--- OUTSIDE RECORDS SUMMARY | 2023-06-29 08:28 | External Medical Summary | Continuity of Care Document ---
Author Name Unknown Organization [address] [id number] Care Team Providers Care Carton Stapler Name Role Phone Stanislav Solitario Primary Care Physician [phone] [id number] Date(s): [facility]/23 - 05/20/[address] [address] [phone] Encounter Diagnosis HYPERTENSION(Discharge Diagnosis) - 05/20/23 Tachycardia(Discharge Diagnosis) - 05/20/23 Discharge Disposition: Home or Self Care Attending Physician: LADY Nunez Tara Referring Physician: MD Solitario Juan Allergies, Adverse Reactions, Alerts Substance Reaction Severity Status penicillin rash Active predniSONE Active Assessment and Plan Extracted from: Title:HTN Author:LADY Nunez Tara Date: 1.HYPERTENSION 2.Tachycardia Acute/Chronic: chronic Goal:Resolution/ control Status:stable/controlled Data: records/pt report Plan:Pt bp and hr good on office today. He denies any lightheaded or dizziness if hr is below 60. Contd on present regimen and monitor hr and bp at home. Immunizations Given and Recorded Vaccine Date Status Refusal Reason pneumococcal 23-valent vaccine 12/09/20 Recorded tetanus toxoids-diphtheria, Td (Adult) 12/28/12 Re corded Medications levothyroxine 25 mcg (0.025 mg) oral tablet Start: 10/23/22 15:01:00 EDT, 1 tab, PO, Daily, Disp# 90 tab, Refills: 3, Pharmacy: [facility]/pharmacy #[id number] Start Date: 10/23/22 Status: Ordered lisinopril 40 mg oral tablet Start: 10/23/22 15:01:00 EDT, 1 tab, PO, Daily, Disp# 90 tab, Refills: 4, Pharmacy: [facility]/pharmacy #[id number] Start Date: 10/23/22 Status: Ordered meclizine 25 mg oral tablet Start: 11/02/18 11:48:00 EDT, 1 tab, PO, tid, Disp# 90 tab, Refills: 3, PRN: as needed for dizziness, [id number] Start Date: 11/02/18 Status: Ordered Metoprolol Tartrate 25 mg oral tablet Start: 04/23/23 15:31:00 EDT, 0.5 tab, PO, Daily Start Date: 04/23/23 Status: Ordered pravastatin 20 mg oral tablet Start: 10/23/22 15:01:00 EDT, 1 tab, PO, Daily, Disp# 90 tab, Refills: 3, [id number] Start Date: 10/23/22 Status: Ordered Mental Status 05/20/23 Barriers to Learning one year None evide nt Mandatory Health Literacy Documentation Yes Health Literacy Communication Barriers N ever Primary Language Burmese Problem List Condition Confirmation Course Effective Dates Status H ealth Status Informant ABDOMINAL HERNIA 1 Confirmed 11/07/10 Active Diverticulosis Confirmed Active Hx of gout Confirmed Active HYPERTENSION 2 Confirmed 11/07/10 Active Hypothyroidism 3 Confirmed Active Impaired fasting glucose Confirmed Active Kidney stones Confirmed Active MIXED HYPERLIPIDEMIA 4 Confirmed 11/07/10 Active Meniere disease 5 Confirmed 10/12/18 Active Sinusitis Confirmed Active Tobacco user Confirmed Active Tobacco use disorder Confirmed Active Vertigo Confirmed Active 1large hiatal hernia s/p repair. umbilical hernia s/p repair 2sees Dr. Jaimes 3sees Dr[address] aJimes 4se[address] Dr. Jaimes 5sees ENT Diagnosis Diagnosis Type Effective Dates Health Status Cl inical Service Informant HYPERTENSION Discharge Diagnosis 05/20/23 Tachycardia Discharge Diagnosis 05/20/23 Procedures Procedure Date Related Diagnosis Body Site Status Echocardiogram 1 01/23/21 Complete d Foot X-ray Left 2 05/25/19 Complet ed X-ray of right foot 3 05/23/19 Com pleted Diagnostic radiography of or bits (procedure) 09/08/18 Completed MRI of head (procedure) 09/08/18 C ompleted 12 lead ECG (regime/therapy) 09/07/18 Completed Computed tomography angiogra phy of head (procedure) 09/07/18 Completed Computed tomography angiogra phy of neck vessels (procedure) 09/07/[address] angiogram of head, neck a nd thorax 4 09/07/[address] angiogram of head, neck a nd thorax 5 09/07/18 Completed In office stress test 6 06/09/17 C ompleted Stress test treadmill 7 06/09/17 C ompleted KUB X-ray 8 11/12/16 Completed Radiography of kidney-ureter -bladder (procedure) 11/12/16 Completed KUB X-ray 9 06/30/16 Completed Radiography of kidney-ureter -bladder (procedure) 06/30/16 Completed Removal of foreign body, ext ernal eye; corneal, with slit lamp 06/22/16 Complete d Removal of foreign body, not otherwise specified 10/29/10 Completed Colonoscopy 10 12/28/08 Completed Fundoplication 11 Complet ed Repair of umbilical hernia Completed 11. Normal elft ventricular wall motion and ejection fraction estimated in the range of 50-55% 2. Mild left ventricular hypertrophy. 3. Sclerotic changes involving both the aortic and mitral valve leaflets. 4. Trace to at most mild mitral and tricuspid valvular insufficiency. 2Impression: Mild lateral soft tissue edema. Mild scattered degenerative changes as noted. No acute bony abnormality 31. No acute fractures 2. Arthritic changes at the level of the first metatarsal phalangeal joint with joint space narrowing, periarticular calcifications, and soft tissue swelling. 41. Dentate nucleus and basal ganglia calcification 2. No evidence of aneurysm. no evidence of major intracranial branch occlusion. 5No significant stenosis, occlusion, or dissection identified within the carotid or vertebral arteries. Moderate plaque formatiton right carotid bifurcation. 6Assessments: Negative ECG stress test. No chest pain associated with exertion. Done by Dr. 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 Negative ECG stress test 2. No chest pain associated with exertion. 81. No change in the 6 mm right renal calculus. 2. No ureteral calculi identified. 9Impression; Stable right sided nephrolithiasis. No ureteral calculi 10normal 11large Hiatal hernia 06/19 Vital Signs Most recent to oldest [Reference Range]: 1 Patient Weight 81.9 kg (05/20/23 1:26 PM) Temperature [36.5-37.9 DegC] 36.5 DegC (05/20/23 1:26 PM) Heart Rate 55 bpm (05/20/23 1:26 PM) Respiratory Rate 16 br/min (05/20/23 1:26 PM) Blood Pressure 122/82mmHg (05/20/23 1:26 PM) Social History Social History Type Response Tobacco Current every day sm oker, chewing tobacco since teenager Smoking Status Never smoked cigaret la Sex Male FCM Outpt Note * LADY Nunez Tara: PERFORM Event Display: FCM Outpt Note Authored Date: Chief Complaint 3 week F/U on HTN. History of Present Illness Pt started on metoprolol for tacycardia and elevated bp. His bp at home has been nl. He had broughthis cuff in several months ago and his systolic was approx 20- 30 higher than than our cuff. Review of Systems Constitutional: No fever, chills, sweats Pulmonary: No shortness of breath, dyspnea with exertion, cough, hemoptysis, wheezing, chest pain. Cardiovascular: No chest pain, palpitations, syncope, edema, cyanosis, claudication, orthopnea. Physical Exam Vitals & Measurements T:36.5C HR:55(Monitored) RR:16 BP:122/82 SpO2:98% WT:81.900kg(Dosing) WT:81.9kg PHQ2 Data(Data Documented on:05/20/2023 13:26) Emotional health assessment NEGATIVE head- normocephalic Pulmonary- chest expansion symmetric, CTA (clear to auscultation), eupnea, no adventitious sounds (rales, crackles, wheezes) CV (cardiovascular)- RRR no m/r/g (systolic ejection murmur, rubs, gallops), good peripheral perfusion Neuro:Alert, Oriented Assessment/Plan 1.HYPERTENSION 2.Tachycardia Acute/Chronic: chronic Goal:Resolution/ control Status:stable/controlled Data: records/pt report Plan:Pt bp and hr good on office today. He denies any lightheaded or dizziness if hr is below 60.Contd on present regimen and monitor hr and bp at home. Problem List/Past Medical History Ongoing ABDOMINAL HERNIA Diverticulosis Hx of gout HYPERTENSION Hypothyroidism Impaired fasting glucose Kidney stones Meniere disease MIXED HYPERLIPIDEMIA Sinusitis Tobacco use disorder Tobacco user Vertigo Historical Colon cancer screening GERD (gastroesophageal reflux disease) Procedure/Surgical History Echocardiogram (01/23/2021)Foot X-ray Left (05/25/2019)X-ray of right foot (05/23/2019)Diagnostic radiography of orbits (procedure) (09/08/2018)MRI of head (procedure) (09/08/2018)CT angiogram of head, neck and thorax (09/07/2018)CT angiogram of head, neck and thorax (09/07/2018 )12 lead ECG (regime/therapy) (09/07/2018)Computed tomography angiography of neck vessels (procedure) (09/07/2018)Computed tomography angiography of head (procedure) (09/07/2018)In officestress test (06/09/2017)Stress test treadmill (06/09/2017)KUB X-ray (11/12/2016)Radiography of gfhmlj-gisphg-hvgbqwe (procedure) (11/12/2016)KUB X-ray (06/30/2016)Radiography of iucivk-gyqdss-jyvjwcb (procedure) (06/30/2016)Removal of foreign body, external eye; corneal, with slitlamp (06/22/2016)Removal of foreign body, not otherwise specified (10/29/2010)Colonoscopy (12/28/2008)Repair of umbilical herniaFundoplication Medications levothyroxine(levothyroxine 25 mcg (0.025 mg) oral tablet), 25 mcg= 1 tab, PO, Daily, 3 refills lisinopril(lisinopril 40 mg oral tablet), 40 mg= 1 tab, PO, Daily, 4 refills meclizine(meclizine 25 mg oral tablet), 25 mg= 1 tab, PO, tid, PRN, 3 refills metoprolol(Metoprolol Tartrate 25 mg oral tablet), 12.5 mg= 0.5 tab, PO, Daily pravastatin(pravastatin 20 mg oral tablet), 20 mg= 1 tab, PO, Daily, 3 refills Allergies penicillinrash predniSONE Social History Smoking Status Never smoked cigarettes Alcohol - Denies Alcohol Use Employment/School Status:Retired Exercise - Regular exercise Exercise type:Walking - 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 Substance Abuse - Denies Substance Abuse Tobacco - High Risk Use:Current every day smoker Type:chewing tobacco since teenager Family History Brain cancer......: Father. Kidney cancer, primary, with metastasis from kidney to other site: Father. Health Status Family Member(s) Immunizations Vaccine Date Status pneumococcal 23-valent vaccine 12/2020 Recorded tetanus toxoids-diphtheria, Td (Adult) 12/28/2012 Recorded Recommendations Health Maintenance Pending(in the next year) OverDue Adult Influenza Vaccine due02/08/23and every 1year Due Adult COVID-19 Vaccination due05/20/23Unknown Frequency Adult Tdap/Td Vaccine due05/20/23Unknown Frequency Shingles Vaccine due05/20/23One-time only Due In Future Medicare Annual Wellness Visit not due until10/24/23and every 1year Body Mass Index not due until05/19/24and every 1year Satisfied(in the past 1 year) Satisfied Body Mass Index on04/23/23.Satisfied by NEMO Dominguez, Nadine Colorectal Cancer Screening on10/14/22.Satisfied by ANGELES Santana Stacey Hepatitis C Screening on04/23/23.Satisfied by Contributor_system, [email or web address] Lipid Screening on10/17/22.Satisfied by Contributor_system, [id number] Medicare Annual Wellness Visit on10/23/22.Satisfied by MD Solitario Juan Electronic Signature on File Electronically Reviewed/Signed by: LADY Soria Author Signature Dt/Tm:05/20/2023 02:32 PM Department of Family Medicine TB Patient Care team information Care Team Personnel Name: DO Nieves Franklin J Position: Physician - Family Med Member Role: Lifetime Relationship Address: Address: [address] [place] [address] [place] Name: MD Solitario Juan Position: Physician - Family Med Member Role: Primary Care Provider Address: Address: [address] [place] [address] [place] Care Team Related Persons Name: CHUY COPE Address: home [address] [place] [phone]
--- OUTSIDE RECORDS SUMMARY | 2023-06-29 08:28 | External Medical Summary | Continuity of Care Document ---
Author Name Unknown Organization [facility] [address] [place], [place] [id number] Care Team Providers Care [employer] Name Role Phone Stanislav Solitario Primary Care Physician [phone] [id number] Date(s): 04/23/23 - 04/23/23 [facility] [address] [facility] [address], [facility] [address] [place], [place] [phone] Encounter Diagnosis Encounter for screening for other viral diseases(Final) - Impaired fasting glucose(Final) - Discharge Disposition: Home or Self Care Attending Physician: MD Solitario Juan Referring Physician: MD Solitario Juan Allergies, Adverse Reactions, Alerts Substance Reaction Severity Status penicillin rash Active predniSONE Active Immunizations Given and Recorded Vaccine Date Status Refusal Reason pneumococcal 23-valent vaccine 12/09/20 Recorded tetanus toxoids-diphtheria, Td (Adult) 12/28/12 Re corded Medications levothyroxine 25 mcg (0.025 mg) oral tablet Start: 10/23/22 15:01:00 EDT, 1 tab, PO, Daily, Disp# 90 tab, Refills: 3, Pharmacy: [facility]/pharmacy #[id number] Start Date: 10/23/22 Status: Ordered lisinopril 40 mg oral tablet Start: 10/23/22 15:01:00 EDT, 1 tab, PO, Daily, Disp# 90 tab, Refills: 4, Pharmacy: [facility]/pharmacy #[id number] Start Date: 10/23/22 Status: Ordered meclizine 25 mg oral tablet Start: 11/02/18 11:48:00 EDT, 1 tab, PO, tid, Disp# 90 tab, Refills: 3, PRN: as needed for dizziness, Pharmacy: [facility]/pharmacy #[id number] Start Date: 11/02/18 Status: Ordered Metoprolol Tartrate 25 mg oral tablet Start: 04/23/23 15:31:00 EDT, 0.5 tab, PO, Daily Start Date: 04/23/23 Status: Ordered pravastatin 20 mg oral tablet Start: 10/23/22 15:01:00 EDT, 1 tab, PO, Daily, Disp# 90 tab, Refills: 3, Pharmacy: [facility]/pharmacy #[id number] Start Date: 10/23/22 Status: Ordered Problem List Condition Confirmation Course Effective Dates [...] s/p repair 2sees Dr. Jaimes 3sees Dr. Jaimes 4sees Dr. Jaimes 5sees ENT Procedures Procedure Date Related Diagnosis Body Site [...] Removal of foreign body, not otherwise specified 3/21/11 Completed Colonoscopy 10 12/28/08 Completed Fundoplication 11 [...] exertion. 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 Negative ECG stress test 2. No chest pain associated with exertion. 81. No change in the 6 mm right renal calculus. 2. No ureteral calculi identified. 9Impression; Stable right sided nephrolithiasis. No ureteral calculi 10normal 11large Hiatal hernia 06/19 Results Laboratory List Name Date Hemoglobin A1C (HEMOGLOBIN, A1C) 04/23/23 Hepatitis C Antibody (HEP C AB) 04/23/23 Most recent to oldest [Reference Range]: 1 Estimated Average Glucose 108 mg/dL 1 (04/23/23 9:51 AM) HbA1c [4.0-6.0 %] 5.4 % (04/23/23 9:51 AM) HCV Ab [NR] NONREACTIVE *Unknown* (04/23/23 9:51 AM) 1Result Comment: Testing Performed By: Dept of Pathology [facility] [address], [address], [place] [address] Social History Social History Type Response Tobacco Current every day sm oker, chewing tobacco since teenager Smoking Status Never smoked cigaret la Sex Male Patient Care team information Care Team Personnel Name: DO Nieves Franklin J Position: Physician - Family Med Member Role: Lifetime Relationship Address: Address: [address] [place] [address] [place] Name: MD Solitario Juan Position: Physician - Family Med Member Role: Primary Care Provider Address: Address: [address] [place] [address], [place] [address] Care Team Related Persons Name: CHUY COPE Address: home [address] [place] [phone]
--- OUTSIDE RECORDS SUMMARY | 2023-06-29 08:28 | External Medical Summary | Continuity of Care Document ---
Author Name Unknown Organization [address] [id number] Care Team Providers Care Press Reader Name Role Phone Stanislav Solitario Primary Care Physician [phone] [id number] Date[facility]s): 02/17/23 - 02/17/[address] [phone] Encounter Diagnosis HYPERTENSION(Discharge Diagnosis) - 02/17/23 Sinusitis(Discharge Diagnosis) - 02/17/23 Discharge Disposition: Home or Self Care Attending Physician: LADY Nunez Tara Referring Physician: LADY Nunez Tara Allergies, Adverse Reactions, Alerts Substance Reaction Severity Status penicillin rash Active predniSONE Active Assessment and Plan Extracted from: Title:Follow up Author:LADY Nunez Tara Date:06/02 1.HYPERTENSION Acute/Chronic: chronic Goal:Resolution/ control Status:stable/controlled Data: records/pt report Plan:Contd on lisinopril. Stop metoprolol. 2.Sinusitis Acute/Chronic: chronic Goal:Resolution/ control Status:stable/controlled Data: records/pt report Plan:Recommend nasal otc steroid for nasal congestion and PND. time spent reviewing chart, face to face visit, ordersand documentation: 32 min Immunizations Given and Recorded Vaccine Date Status Refusal Reason pneumococcal 23-valent vaccine 12/09/20 Recorded tetanus toxoids-diphtheria, Td (Adult) 12/28/12 Re corded Medications levothyroxine 25 mcg (0.025 mg) oral tablet Start: 10/23/22 15:01:00 EDT, 1 tab, PO, Daily, Disp# 90 tab, Refills: 3, Pharmacy: [facility]/pharmacy #[id number] Start Date: 10/23/22 Status: Ordered lisinopril 40 mg oral tablet Start: 10/23/22 15:01:00 EDT, 1 tab, PO, Daily, Disp# 90 tab, Refills: 4, Pharmacy: [facility] #[id number] Start Date: 10/23/22 Status: Ordered meclizine 25 mg oral tablet Start: 11/02/18 11:48:00 EDT, 1 tab, PO, tid, Disp# 90 tab, Refills: 3, PRN: as needed for dizziness, Pharmacy: [facility] #[id number] Start Date: 11/02/18 Status: Ordered pravastatin 20 mg oral tablet Start: 10/23/22 15:01:00 EDT, 1 tab, PO, Daily, Disp# 90 tab, Refills: 3, Pharmacy: [facility] #[id number] Start Date: 10/23/22 Status: Ordered triamcinolone 0.1% topical cream Start: 10/23/22 15:17:00 EDT, 1 appl, topical, bid, Disp# 30 g, Refills: 0, apply a thin film to affected area on toes, Pharmacy: [facility] #[id number] Start Date: 10/23/22 Status: Ordered Mental Status 02/17/23 Barriers to Learning one year None evide nt Mandatory Health Literacy Documentation Yes Health Literacy Communication Barriers N ever Primary Language Icelandic Problem List Condition Confirmation Course Effective Dates Status H ealth Status Informant ABDOMINAL HERNIA 1 Confirmed 11/07/10 Active Diverticulosis Confirmed Active GERD (gastroesophageal reflux disease) Confirmed Active Hx of gout Confirmed Active [...] Dr. Jaimes 4sees Dr. Jaimes 5sees ENT Diagnosis Diagnosis Type Effective Dates Health Status Cl inical Service Informant HYPERTENSION Discharge Diagnosis 02/17/23 Sinusitis Discharge Diagnosis 02/17/23 Procedures Procedure Date Related Diagnosis Body Site [...] exertion. Done by Dr. 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 Negative ECG stress test 2. No chest pain associated with exertion. 81. No change in the 6 mm right renal calculus. 2. No ureteral calculi identified. 9Impression; Stable right sided nephrolithiasis. No ureteral calculi 10normal 11large Hiatal hernia 06/19 Vital Signs Most recent to oldest [Reference Range]: 1 Height 172.3 cm (02/17/23 3:16 PM) Patient Weight 83 kg (02/17/23 3:16 PM) Body Mass Index 27.96 kg/m2 (02/17/23 3:16 PM) Heart Rate 70 bpm (02/17/23 3:16 PM) Respiratory Rate 16 br/min (02/17/23 3:16 PM) Blood Pressure 140/86mmHg (02/17/23 3:16 PM) Cuff Pulse Pressure 54 mmHg (02/17/23 3:16 PM) Social History Social History Type Response Tobacco Current every day sm oker, chewing tobacco since teenager Smoking Status Never smoked cigaret la Sex Male FCM Outpt Note * LADY Nunez Tara: PERFORM Event Display: [facility] Outpt Note Authored Date: [id number] Chief Complaint 6 wk f/u htn, hr. home blood pressures have been stable. bp went up today as he was anticipating appt (white coat syndrome) History of Present Illness Patient here forfollow-up regarding hypertension. His blood pressures at home have beennormal. He did take his blood pressure prior to coming in and it was higher in anticipation of needing to come in for appointment. He did have covid 3 weeks ago. He took paxlovid and is feeling better. Review of Systems Constitutional: No fever, chills, sweats Pulmonary: No shortness of breath, dyspnea with exertion, cough, hemoptysis, wheezing, chest pain. Cardiovascular: No chest pain, palpitations, syncope, edema, cyanosis, claudication, orthopnea. Neurologic: No headache, lightheadedness, dizziness Physical Exam Vitals & Measurements HR:70(Monitored) RR:16 BP:140/86 SpO2:98% HT:172.3cm WT:83.000kg(Dosing) WT:83kg BMI:27.96 PHQ2 Data(Data Documented on:02/17/2023 15:16) Emotional health assessment NEGATIVE head- normocephalic eyes- PERRLA , conjunctiva clear, sclera white, anicteric, Pulmonary- chest expansion symmetric CV (cardiovascular)- RRR extremitiesNo edema or erythema. skin-good turgor w/o lesions, redness, cyanosis, edema nails- no clubbing or deformities w good cap refill Neuro:Alert, Oriented Psy:no homicidal or suicidal ideations. Assessment/Plan 1.HYPERTENSION Acute/Chronic: chronic Goal:Resolution/ control Status:stable/controlled Data: records/pt report Plan:Contd on lisinopril. Stop metoprolol. 2.Sinusitis Acute/Chronic: chronic Goal:Resolution/ control Status:stable/controlled Data: records/pt report Plan:Recommend nasal otc steroid for nasal congestion and PND. time spent reviewing chart, face to face visit, ordersand documentation: 32 min Problem List/Past Medical History Ongoing ABDOMINAL HERNIA Diverticulosis GERD (gastroesophageal reflux disease) Hx of gout HYPERTENSION Hypothyroidism Impaired fasting glucose Kidney stones Meniere disease MIXED HYPERLIPIDEMIA Sinusitis Tobacco use disorder Tobacco user Vertigo Historical Colon cancer screening Procedure/Surgical History Echocardiogram (01/23/2021)Foot X-ray Left (05/25/2019)X-ray of right foot (05/23/2019)Diagnostic radiography of orbits (procedure) (09/08/2018)MRI of head (procedure) (09/08/2018)CT angiogram of head, neck and thorax (09/07/2018)CT angiogram of head, neck and thorax (09/07/2018 )12 lead ECG (regime/therapy) (09/07/2018)Computed tomography angiography of neck vessels (procedure) (09/07/2018)Computed tomography angiography of head (procedure) (09/07/2018)In officestress test (06/09/2017)Stress test treadmill (06/09/2017)KUB X-ray (11/12/2016)Radiography of qfvdsd-elmsdx-crvsylq (procedure) (11/12/2016)KUB X-ray (06/30/2016)Radiography of iaglkk-jehtjj-mqgythx (procedure) (06/30/2016)Removal of foreign body, external eye; [...] 1 tab, PO, tid, PRN, 3 refills pravastatin(pravastatin 20 mg oral tablet), 20 mg= 1 tab, PO, Daily, 3 refills triamcinolone topical(triamcinolone 0.1% topical cream), 1 appl, topical, bid Allergies penicillinrash predniSONE Social History Smoking Status [...] Recommendations Health Maintenance Pending(in the next year) Due Adult Influenza Vaccine due02/08/23and every 1year Adult COVID-19 Vaccination due02/17/23Unknown Frequency Adult Tdap/Td Vaccine due02/17/23Unknown Frequency Hepatitis C Screening due02/17/23One-time only Shingles Vaccine due02/17/23One-time only Due In Future Medicare Annual Wellness Visit not due until10/24/23and every 1year Body Mass Index not due until02/17/24and every 1year Satisfied(in the past 1 year) Satisfied Body Mass Index on02/17/23.Satisfied by ANGELES Oliveira Bobbi Colorectal Cancer Screening on10/14/22.Satisfied by ANGELES Santana Stacey Lipid Screening on10/17/22.Satisfied by Contributor_system, [email or web address] Medicare Annual Wellness Visit on10/23/22.Satisfied by MD Solitario Juan Electronic Signature on File Electronically Reviewed/Signed by: LADY Soria Author Signature Dt/Tm:02/17/2023 04:31 PM Department of Family Medicine TB Patient Care team information Care Team Personnel Name: DO Nieves Franklin J Position: Physician - Family Med Member Role: Lifetime Relationship Address: Address: [address] [address] Name: MD Solitario Juan Position: Physician - Family Med Member Role: Primary Care Provider Address: Address: [address] [place] [address] Care Team Related Persons Name: CHUY COPE Address: home [address] [place] [phone]
--- OUTSIDE RECORDS SUMMARY | 2023-06-29 08:28 | External Medical Summary | Continuity of Care Document ---
Author Name Unknown Organization [address] [id number] Care Team Providers Care Load Dispatcher Name Role Phone Stanislav Solitario Primary Care Physician [phone] Encounter [facility] [id number] Date(s): 01/02/23 - 01/02/[address] [address] [phone] Encounter Diagnosis HYPERTENSION(Discharge Diagnosis) - 01/02/23 Body mass index [BMI] 28.0-28.9, adult(Discharge Diagnosis) - 01/02/23 Discharge Disposition: Home or Self Care Attending Physician: LADY Nunez Tara Allergies, Adverse Reactions, Alerts Substance Reaction Severity Status penicillin rash Active predniSONE Active Assessment and Plan Extracted from: Title:follow up Author:LADY Nunez Tara Date: 1.HYPERTENSION Acute/Chronic: chronic Goal:Resolution/ control Status:stable/controlled Data: records/pt report Plan:HR contd to be low. Will contd on metropolol 1/2 tab every other day then stop. Will contd on present HTN regimen. Follow up in 4 weeks. Contd to monitor bp and hr. time spent reviewing chart, face to face visit, ordersand documentation: 23 min Immunizations Given and Recorded Vaccine Date Status Refusal Reason pneumococcal 23-valent vaccine 12/09/20 Recorded tetanus toxoids-diphtheria, Td (Adult) 12/28/12 Re corded Medications famotidine 20 mg oral tablet Start: 10/23/22 15:01:00 EDT, See Instructions, Disp# 180 tab, Refills: 4, TAKE 1 TABLET BY MOUTH TWICE A DAY, TAKE 30-60 MINS PRIOR TO MEALS, Pharmacy: [facility]/pharmacy #[id number] Start Date: 10/23/22 Status: Ordered levothyroxine 25 mcg (0.025 mg) oral tablet Start: 10/23/22 15:01:00 EDT, 1 tab, PO, Daily, Disp# 90 tab, Refills: 3, Pharmacy: [facility]/pharmacy #[id number] Start Date: 10/23/22 Status: Ordered lisinopril 40 mg oral tablet Start: 10/23/22 15:01:00 EDT, 1 tab, PO, Daily, Disp# 90 tab, Refills: 4, Pharmacy: [facility]/pharmacy #[id number] Start Date: 10/23/22 Status: Ordered meclizine 25 mg oral tablet Start: 11/02/18 11:48:00 EDT, 1 tab, PO, tid, Disp# 90 tab, Refills: 3, PRN: as needed for dizziness, Pharmacy: [facility]/pharmacy #[id number] Start Date: 11/02/18 Status: Ordered metoprolol tartrate 25 mg oral tablet Start: 12/04/22 11:04:00 EDT, 0.5 tab, PO, Daily, Disp# 15 tab, Refills: 3, other Start Date: 12/04/22 Stop Date: 04/03/23 Status: Ordered pravastatin 20 mg oral tablet Start: 10/23/22 15:01:00 EDT, 1 tab, PO, Daily, Disp# 90 tab, Refills: 3, Pharmacy: [facility]/pharmacy #[id number] Start Date: 10/23/22 Status: Ordered triamcinolone 0.1% topical cream Start: 10/23/22 15:17:00 EDT, 1 appl, topical, bid, Disp# 30 g, Refills: 0, apply a thin film to affected area on toes, Pharmacy: [facility]/pharmacy #[id number] Start Date: 10/23/22 Status: Ordered Mental Status 01/02/23 Barriers to Learning one year None evide nt Mandatory Health Literacy Documentation Yes Health Literacy Communication Barriers N ever Primary Language Frisian Problem List Condition Confirmation Course Effective Dates Status H ealth Status Informant ABDOMINAL HERNIA 1 Confirmed 11/07/10 Active Diverticulosis Confirmed Active GERD (gastroesophageal reflux disease) Confirmed Active Hx of gout Confirmed Active HYPERTENSION 2 Confirmed 11/07/10 Active Hypothyroidism 3 Confirmed Active Impaired fasting glucose Confirmed Active Kidney stones Confirmed Active MIXED HYPERLIPIDEMIA 4 Confirmed 11/07/10 Active Meniere disease 5 Confirmed 10/12/18 Active Tobacco user Confirmed Active Tobacco use disorder Confirmed Active Vertigo Confirmed Active 1large hiatal hernia s/p repair. umbilical hernia s/p repair 2sees Dr. Jaimes 3sees Dr. Jaimes 4sees Dr. Jaimes 5sees ENT Diagnosis Diagnosis Type Effective Dates Health Status Clinical Service Informant HYPERTENSION Discharge Diagnosis 01/02/23 Body mass index [BMI] 28.0-28.9, adult Discharge Diagnosis 01/02/23 Non-Specified Procedures Procedure Date Related Diagnosis Body Site [...] exertion. Done by Dr. Stew Jaimes MD, desizing machine back tender 71. Negative ECG stress test 2. No chest pain associated with exertion. 81. No change in the 6 mm right renal calculus. 2. No ureteral calculi identified. 9Impression; Stable right sided nephrolithiasis. No ureteral calculi 10normal 11large Hiatal hernia 06/19 Vital Signs Most recent to oldest [Reference Range]: 1 Height 172.3 cm (01/02/23 10:57 AM) Patient Weight 83.4 kg (01/02/23 10:57 AM) Body Mass Index 28.09 kg/m2 (01/02/23 10:57 AM) Heart Rate 54 bpm (01/02/23 10:57 AM) Respiratory Rate 16 br/min (01/02/23 10:57 AM) Blood Pressure 132/82mmHg (01/02/23 10:57 AM) Cuff Pulse Pressure 50 mmHg (01/02/23 10:57 AM) Social History Social History Type Response Tobacco Current every day sm oker, chewing tobacco since teenager Smoking Status Never smoked cigaret la Sex Male FCM Outpt Note * LADY Nunez Tara: PERFORM Event Display: FCM Outpt Note Authored Date: Chief Complaint bp check. home readings over the last 1-2 wks 116-139/71-87 and pulse 49-83; averaging in the 50s. states that he feels fine, denies dizziness History of Present Illness Patient here for blood pressure check. At last visit decreased his metoprolol due to low heart rate. His bp 120-130s/70-80. He is not having any symptoms from his low HR. Review of Systems Constitutional: No fever, chills, sweats Pulmonary: No shortness of breath, dyspnea with exertion, cough Cardiovascular: No chest pain, palpitations, syncope, edema Physical Exam Vitals & Measurements HR:54(Monitored) RR:16 BP:132/82 SpO2:98% HT:172.3cm WT:83.4kg WT:83.400kg(Dosing) BMI:28.09 PHQ2 Data(Data Documented on:01/02/2023 10:57) Emotional health assessment NEGATIVE head- normocephalic Pulmonary- chest expansion symmetric, CTA (clear to auscultation), eupnea, no adventitious sounds (rales, crackles, wheezes) CV (cardiovascular)- RRR no m/r/g (systolic ejection murmur, rubs, gallops), good peripheral perfusion Neuro:Alert, Oriented Assessment/Plan 1.HYPERTENSION Acute/Chronic: chronic Goal:Resolution/ control Status:stable/controlled Data: records/pt report Plan:HR contd to be low. Will contd on metropolol 1/2 tab every other day then stop. Will contd on present HTN regimen. Follow up in 4 weeks. Contd to monitor bp and hr. time spent reviewing chart, face to face visit, ordersand documentation: 23 min Problem List/Past Medical History Ongoing ABDOMINAL HERNIA Diverticulosis GERD (gastroesophageal reflux disease) Hx of gout HYPERTENSION Hypothyroidism Impaired fasting glucose Kidney stones Meniere disease MIXED HYPERLIPIDEMIA Tobacco use disorder Tobacco user Vertigo Historical [...] (06/09/2017)Stress test treadmill (06/09/2017)KUB X-ray (11/12/2016)Radiography of nnlnse-cyjttg-qlzehuo (procedure) (11/12/2016)KUB X-ray (06/30/2016)Radiography of ljfwnj-pucygw-ifexcnv (procedure) (06/30/2016)Removal of foreign body, external eye; corneal, with slitlamp (06/22/2016)Removal of foreign body, not otherwise specified (10/29/2010)Colonoscopy (12/28/2008)Repair of umbilical herniaFundoplication Medications famotidine(famotidine 20 mg oral tablet), See Instructions, 4 refills levothyroxine(levothyroxine 25 mcg (0.025 mg) oral tablet), 25 mcg= 1 tab, PO, Daily, 3 refills lisinopril(lisinopril 40 mg oral tablet), 40 mg= 1 tab, PO, Daily, 4 refills meclizine(meclizine 25 mg oral tablet), 25 mg= 1 tab, PO, tid, PRN, 3 refills metoprolol(metoprolol tartrate 25 mg oral tablet), 12.5 mg= 0.5 tab, PO, Daily, 3 refills pravastatin(pravastatin 20 mg oral tablet), [...] the next year) OverDue Adult Influenza Vaccine due02/08/22and every 1year Due Adult COVID-19 Vaccination due01/02/23Unknown Frequency Adult Tdap/Td Vaccine due01/02/23Unknown Frequency Hepatitis C Screening due01/02/23One-time only Shingles Vaccine due01/02/23One-time only Due In Future Medicare Annual Wellness Visit not due until10/24/23and every 1year Body Mass Index not due until01/02/24and every 1year Satisfied(in the past 1 year) Satisfied Body Mass Index on01/02/23.Satisfied by ANGELES Oliveira Bobbi Colorectal Cancer Screening on10/14/22.Satisfied by ANGELES Santana Stacey Lipid Screening on10/17/22.Satisfied by Contributor_system, [id number] Medicare Annual Wellness Visit on10/23/22.Satisfied by MD Solitario Juan Electronic Signature on File Electronically Reviewed/Signed by: LADY Soria Author Signature Dt/Tm:01/02/2023 11:55 AM Department of Family Medicine [facility] Patient Care team information Care Team Personnel Name: DO Nieves Franklin J Position: Physician - Family Med Member Role: Lifetime Relationship Address: Address: [address] [place] [address] [place] Name: MD Solitario Juan Position: Physician - Family Med Member Role: Primary Care Provider Address: Address: [address] [place] [address] Care Team Related Persons Name: CHUY COPE Address: home [address] [facility] [place] [phone]
--- OUTSIDE RECORDS SUMMARY | 2023-06-29 08:28 | External Medical Summary | Continuity of Care Document ---
Author Name Unknown Organization [address] [id number] Care Team Providers Care Supervisor [employer] Name Role Phone Stanislav Solitario Primary Care Physician [phone] [id number] Date(s): 04/23/23 - 04/23/[address] [address] [phone] Encounter Diagnosis HYPERTENSION(Discharge Diagnosis) - 04/22/23 MIXED HYPERLIPIDEMIA(Discharge Diagnosis) - 04/22/23 Hypothyroidism(Discharge Diagnosis) - 04/22/23 Body mass index [BMI] 27.0-27.9, adult(Discharge Diagnosis) - 04/23/23 Impaired fasting glucose(Discharge Diagnosis) - 04/22/23 Urethral disease(Discharge Diagnosis) - 04/23/23 Bruise(Discharge Diagnosis) - 04/23/23 Discharge Disposition: Home or Self Care Attending Physician: MD Solitario Juan Referring Physician: MD Solitario Juan Allergies, Adverse Reactions, Alerts Substance Reaction Severity Status penicillin rash Active predniSONE Active Assessment and Plan Extracted from: Title:Office Visit Note Author:MD Solitario Juan Presley e:04/23/23 1.HYPERTENSION HTN: Status: chronic, BP elevated mildly. Data: CMP, CBC, UA, records Goal: BP<140/90 Plan: restart metoprolol 25mg 1/2 tab daily, check BP and HR at homer. BTO 3 weeks. 2.MIXED HYPERLIPIDEMIA Hyperlipidemia: Status: chronic, controlled Data: lipid, CMP, records Goal: LDL<100 Plan: continue current medications. continue Therapeutic life style modification (diet and exercise). 3.Hypothyroidism Hypothyroidism: Controlled. Continue current medication. 4.Impaired fasting glucose Pre-DM: Status: chronic Data: FBS, A1C Goal: resolution Plan: continue current medications. continue Therapeutic life style modification (diet and exercise). 5.Urethral disease staining on underwear. check UA and cx. 6.Bruise likely due to minor trauma due to pt's activities. reassured. Check labs prior to next visit: lipid, CMP, HBA1C, TSH, CBC, UA BTO6 months for HM and f/u Immunizations Given and Recorded Vaccine Date Status Refusal Reason pneumococcal 23-valent vaccine 12/09/20 Recorded tetanus toxoids-diphtheria, Td (Adult) 12/28/12 Re corded Medications levothyroxine 25 mcg (0.025 mg) oral tablet Start: 10/23/22 15:01:00 EDT, 1 tab, PO, Daily, Disp# 90 tab, Refills: 3, Pharmacy: [facility][id number] Start Date: 10/23/22 Status: Ordered lisinopril 40 mg oral tablet Start: 10/23/22 15:01:00 EDT, 1 tab, PO, Daily, Disp# 90 tab, Refills: 4, Pharmacy: [facility] #[id number] Start Date: 10/23/22 Status: Ordered meclizine 25 mg oral tablet Start: 11/02/18 11:48:00 EDT, 1 tab, PO, tid, Disp# 90 tab, Refills: 3, PRN: as needed for dizziness, Pharmacy: [facility] #[id number] Start Date: 11/02/18 Status: Ordered Metoprolol Tartrate 25 mg oral tablet Start: 04/23/23 15:31:00 EDT, 0.5 tab, PO, Daily Start Date: 04/23/23 Status: Ordered pravastatin 20 mg oral tablet Start: 10/23/22 15:01:00 EDT, 1 tab, PO, Daily, Disp# 90 tab, Refills: 3, Pharmacy: [facility] #[id number] Start Date: 10/23/22 Status: Ordered Mental Status 04/23/23 Barriers to Learning one year None evide nt Mandatory Health Literacy Documentation Yes Health Literacy Communication Barriers N ever Primary Language Sri Lankan Problem List Condition Confirmation Course Effective Dates [...] Effective Dates Health Status Clinical Service Informant Impaired fasting glucose Discharge Diagnosis 04/22/23 HYPERTENSION Discharge Diagnosis 04/22/23 MIXED HYPERLIPIDEMIA Discharge Diagnosis 04/22/23 Hypothyroidism Discharge Diagnosis 04/22/23 Body mass index [BMI] 27.0-27.9, adult Discharge Diagnosis 04/23/23 Non-Specified Bruise Discharge Diagnosis 04/23/23 Urethral disease Discharge Diagnosis 04/23/23 Procedures Procedure Date Related Diagnosis Body Site [...] exertion. Done by Dr. Stew Jaimes MD, environmental technology professor 71. Negative ECG stress test 2. No chest pain associated with exertion. 81. No change in the 6 mm right renal calculus. 2. No ureteral calculi identified. 9Impression; Stable right sided nephrolithiasis. No ureteral calculi 10normal 11large Hiatal hernia 06/19 Results Most recent to oldest [Reference Range]: 1 FIT-DNA Outside Negative (10/14/22 7:00 PM) FIT-DNA Outside Not Processed Sample OK (10/14/22 7:00 PM) Vital Signs Most recent to oldest [Reference Range]: 1 Height 172.3 cm (04/23/23 3:12 PM) Patient Weight 81.8 kg (04/23/23 3:12 PM) Body Mass Index 27.55 kg/m2 (04/23/23 3:12 PM) Heart Rate 101 bpm (04/23/23 3:12 PM) Respiratory Rate 18 br/min (04/23/23 3:12 PM) Blood Pressure 146/90mmHg (04/23/23 3:12 PM) Social History Social History Type Response Tobacco Current every day sm oker, chewing tobacco since teenager Smoking Status Never smoked cigaret la Sex Male FCM Outpt Note * MD Solitario Juan: PERFORM Event Display: FCM Outpt Note Authored Date: [id number] Chief Complaint f/u- "bruising" on hands this past summer. Heart rate high now that he stopped metoprolol. History of Present Illness No significant change in health since last visit 6 months ago. bruising" on hands this summer. 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 Heart rate high now that he stopped metoprolol due to HR low in 11/2022 even when taking metoprolol 25mg 1/2 tab daily. Not checkinghome BP. noted some brownish staining on front of underwear x on/off 1 year. No bright blood. No abd pain. No blood in urine. No urinary symptoms. sees ENT for Hx of menierer disease. doing well. Home BP 140-150/80-90. still chew tobacco - 4 days a can. 30 Day Labs Last Updated 04/23/23 10:45 04/23/23 0951 HbA1c5.4 Estimated Average [id number] Physical Exam Vitals & Measurements HR:101(Monitored) RR:18 BP:146/90 SpO2:98% HT:172.3cm WT:81.8kg WT:81.800kg(Dosing) BMI:27.55 PHQ2 Data(Data Documented on:04/23/2023 15:12) Emotional health assessment NEGATIVE GENERAL: A&Ox3. No acute distress. Affect and speech appropriate. HEENT: PERRLA, EOMI, Conjunctivae clear. NECK: Supple, No lymphadenopathy. No carotid bruits. HEART: RRR, normal S1, S2. No murmurs, gallops or clicks. LUNGS: breathing not labored, breathing sound clear, breathing sound equal bilaterally, no rales, no wheezing. ABDOMEN: Positive bowel sound, soft, nontender, non-distended. No hepatosplenomegaly noted. No mass. : no obvious skin lesion or urethral discharge. EXTREMITIES: No edema, clubbing or cyanosis. Skin: no bruises. Assessment/Plan 1.HYPERTENSION HTN: Status: chronic, BP elevated mildly. Data: CMP, CBC, UA, records Goal: BP<140/90 Plan: restart metoprolol 25mg 1/2 tab daily, check BP and HR at homer. BTO 3 weeks. 2.MIXED HYPERLIPIDEMIA Hyperlipidemia: Status: chronic, controlled Data: lipid, CMP, records Goal: LDL<100 Plan: continue current medications. continue Therapeutic life style modification (diet and exercise). 3.Hypothyroidism Hypothyroidism: Controlled. Continue current medication. 4.Impaired fasting glucose Pre-DM: Status: chronic Data: FBS, A1C Goal: resolution Plan: continue current medications. continue Therapeutic life style modification (diet and exercise). 5.Urethral disease staining on underwear. check UA and cx. 6.Bruise likely due to minor trauma due to pt's activities. reassured. Check labs prior to next visit: lipid, CMP, HBA1C, TSH, CBC, UA BTO6 months for HM and f/u Problem List/Past Medical History Ongoing ABDOMINAL HERNIA [...] (06/09/2017)Stress test treadmill (06/09/2017)KUB X-ray (11/12/2016)Radiography of joiovy-cjjyij-wohdzsz (procedure) (11/12/2016)KUB X-ray (06/30/2016)Radiography of pyqmtm-ibudmq-bxjabaf (procedure) (06/30/2016)Removal of foreign body, external eye; [...] due02/08/23and every 1year Due Adult COVID-19 Vaccination due04/23/23Unknown Frequency Adult Tdap/Td Vaccine due04/23/23Unknown Frequency Hepatitis C Screening due04/23/23One-time only Shingles Vaccine due04/23/23One-time only Due In Future Medicare Annual Wellness Visit not due until10/24/23and every 1year Body Mass Index not due until04/22/24and every 1year Satisfied(in the past 1 year) Satisfied Body Mass Index on04/23/23.Satisfied by NEMO Dominguez, Nadine Colorectal Cancer Screening on10/14/22.Satisfied by ANGELES Santana Stacey Lipid Screening on10/17/22.Satisfied by Contributor_system, [employer] Medicare Annual Wellness Visit on10/23/22.Satisfied by MD Solitario Juan Electronic Signature on File Electronically Reviewed/Signed by: Stanislav Solitario MD Author Signature Dt/Tm:04/23/2023 03:53 PM Department of Family Medicine [facility] Patient Care team information Care Team Personnel Name: DO Nieves Franklin J Position: Physician - Family Med Member Role: Lifetime Relationship Address: Address: [address] [place] [address] Name: MD Solitario Juan Position: Physician - Family Med Member Role: Primary Care Provider Address: Address: [address] [place] [address], [place] [address] [place] Care Team Related Persons Name: CHUY COPE Address: home [address] [place] [phone]
--- OUTSIDE RECORDS SUMMARY | 2023-06-29 08:28 | External Medical Summary | Continuity of Care Document ---
Author Name Unknown Organization [facility] [address] [place], [place] [id number] Care Team Providers Care Sql Developer Dba Name Role Phone Stanislav Solitario Primary Care Physician [phone] [id number] Date(s): 04/24/23 - 04/24/23 [facility] [address] [facility] [address], [facility] [address] [place], [place] [phone] Encounter Diagnosis Urethral disorder, unspecified(Final) - Discharge Disposition: Home or Self Care [...] Daily, Disp# 90 tab, Refills: 3, Pharmacy: [facility]/pharmacy #[id number] Start Date: 10/23/22 Status: Ordered lisinopril 40 mg oral tablet Start: 10/23/22 15:01:00 EDT, 1 tab, PO, Daily, Disp# 90 tab, Refills: 4, Pharmacy: [facility]/pharmacy #[id number] Start Date: 10/23/22 Status: Ordered meclizine 25 mg oral tablet Start: 11/02/18 11:48:00 EDT, 1 tab, PO, tid, Disp# 90 tab, Refills: 3, PRN: as needed for dizziness, Pharmacy: [facility]/pharmacy #[id number] Start Date: 11/02/18 Status: Ordered Metoprolol Tartrate 25 mg oral tablet Start: 04/23/23 15:31:00 EDT, 0.5 tab, PO, Daily Start Date: 04/23/23 Status: Ordered pravastatin 20 mg oral tablet Start: 10/23/22 15:01:00 EDT, 1 tab, PO, Daily, Disp# 90 tab, Refills: 3, Pharmacy: [facility]/pharmacy #[id number] Start Date: 10/23/22 Status: Ordered Problem List [...] exertion. Done by Dr. Stew Jaimes MD, gill box tender 71. Negative ECG stress test 2. No chest pain associated with exertion. 81. No change in the 6 mm right renal calculus. 2. No ureteral calculi identified. 9Impression; Stable right sided nephrolithiasis. No ureteral calculi 10normal 11large Hiatal hernia 06/19 Results Laboratory List Name Date Urine Analysis w/ Reflexed Microscopic. (URINE W/REFLEX MICR) 04/24/23 Most recent to oldest [Reference Range]: 1 Bili (u) [NEG] NEGATIVE *Unknown* (04/24/23 2:40 PM) Ketones [NEG mg/dL] NEGATIVE mg/dL (04/24/23 2:40 PM) Leuk Est [NEG] NEGATIVE 1 *Unknown* (04/24/23 2:40 PM) Nitrite (u) [NEG] NEGATIVE *Unknown* (04/24/23 2:40 PM) Appear (u) SLIGHTLY CLOUDY *Unknown* (04/24/23 2:40 PM) Color (u) YELLOW *Unknown* (04/24/23 2:40 PM) Glu (u) [NEG mg/dL] NEGATIVE mg/dL (04/24/23 2:40 PM) Hgb (u) [NEG] NEGATIVE *Unknown* (04/24/23 2:40 PM) pH (u) [4.5-8.0 unit] 5.5 unit (04/24/23 2:40 PM) Prot (u) [NEG mg/dL] NEGATIVE mg/dL (04/24/23 2:40 PM) Urobili [0.1-1.0 EU/dL] 0.2 EU/dL (04/24/23 2:40 PM) SG [1.005-1.030] 1.010 (04/24/23 2:40 PM) 1Result Comment: Testing Performed By: Dept of Pathology [facility] [address], [address], [place] [address] Orders for Microbiology Reports Name Date Urine Culture (CULTURE, URINE) 04/24/23 Microbiology Reports TEST:Urine.Cx STATUS:Auth (Verified) BODY SITE: SOURCE:Urine COLLECTED DATE/TIME:04/24/23 2:40 PM Status FINAL 04/26/2023 Social History Social History Type Response Tobacco Current every day sm oker, chewing tobacco since teenager Smoking Status Never smoked cigaret al Sex Male Patient Care team information Care Team Personnel Name: DO Nieves Franklin J Position: Physician - Family Med Member Role: Lifetime Relationship Address: Address: [address] [place] [address] [place] Name: MD Solitario Juan Position: Physician - Family Med Member Role: Primary Care Provider Address: Address: [address] [place] [id number] [place] Care Team Related Persons Name: RODO COPEYCE Address: home [address] [place] [address] [place] [phone]
[2023-06-29] MEDS ORDERED: MULTIVITAMIN TAB PO SCH (09:00)
[2023-06-29] MEDS ORDERED: METOPROLOL TARTRATE 25 MG TAB PO SCH (09:00)
[2023-06-29] MEDS ORDERED: PRAVASTATIN SOD 20 MG TAB PO SCH (09:00)
[2023-06-29] MEDS ORDERED: ASPIRIN 325 MG ECTAB PO SCH (09:00)
[2023-06-29] MEDS ORDERED: lisinopril 40 MG TAB PO SCH (09:00)
== END 2023-06-29 15:21 | disposition home health service (06) | DRG 489 ==
LOC: ED 09:39 → ASU 13:10 → 3W 13:10